=== PATIENT | female | born 1935 | race Caucasian/White ===

== ENCOUNTER 2020-06-18 10:34 | Outpatient (CLI) | payer MEDICARE, SELFPAY ==
--- NOTE | ~2020-06-18 | CT_ITS ---
EXAMINATION: CT abdomen pelvis w con DATE: 06/18/2020 11:36 INDICATION: Abdominal pain. TECHNIQUE: Computed tomography (CT) of the abdomen and pelvis was performed with 100 mL Omnipaque 350 intravenous contrast. Automated exposure control and iterative reconstruction technique were employe d. The dose-length product was 391.07 mGy-cm. COMPARISON: CT abdomen and pelvis 10/31/2016 FINDINGS: The visualized portions of the lung bases demonstrate mild atelectasis. There is a pneumato brandon in right lower lobe. No pleural effusion. The heart size is normal. No pericardial effusion. The re are cysts in the liver measuring up to 14 mm. There are changes of cholecystectomy. The spleen, pa ncreas, and adrenal glands are normal. There are cysts in the kidneys measuring up to 8 mm on the rig ht. There is an umbilical hernia containing fat. There are scattered diverticula in the colon. There is wall thickening of the sigmoid colon with surrounding fat stranding, consistent with diverticuliti s. There are no dilated loops of bowel. The appendix is not visualized. There are no pathologically e nlarged lymph nodes. There is no free intraperitoneal fluid. There is lumbar levocurvature and mild s pondylosis. IMPRESSION: 1. Sigmoid diverticulitis. No perforation or abscess. Reviewed, dictated and finalized at location A.
[2020-06-18 11:08] LABS: Basophils Absolute Auto 0.1 K/mm3 (0.0-0.1); Basophils Percent Auto 1.2 % (0.2-1.2); Eosinophils Absolute Auto 0.1 K/mm3 (0-0.3); Eosinophils Percent Auto 1.9 % (0-4.4); Hematocrit 39.4 % (37.0-47.0); Hemoglobin 12.7 g/dL (12.0-15.0); Immature Granulocyte Absolute 0.02 K/mm3 (0.00-0.031); Immature Granulocyte Percent A 0.3 % (0-0.5); Lymphocytes Absolute Auto 1.53 K/mm3 (0.9-3.2); Lymphocytes Percent Auto 26.3 % (18.3-44.2); Mean Corpuscular HGB Conc 32.2 g/dl (32-36); Mean Corpuscular Hemoglobin 29.4 pg (26-34); Mean Corpuscular Volume 91.2 fl (80-100); Mean Platelet Volume 9.4 fl (7.4-10.4); Monocytes Absolute Auto 0.4 K/mm3 (0.1-0.6); Monocytes Percent Auto 6.4 % (2.6-8.5); Neutrophils Absolute Auto 3.7 K/mm3 (1.3-6.7); Neutrophils Percent Auto 63.9 % (45.5-73.1); Platelet Count Result 307 k/mm3 (150-375); Red Blood Count 4.32 M/mm3 (4.2-5.4); Red Cell Distribution Width 12.7 % (11.5-14.5); White Blood Count 5.8 K/mm3 (4.5-10.0)
[2020-06-18 11:28] LABS: Alanine Aminotransferase 15 U/L (4-35); Albumin Level 4.4 g/dL (3.5-5.1); Alkaline Phosphatase 72 U/L (38-126); Anion Gap 14.5 mmol/L (7-16); Aspartate Amino Transferase 27 U/L (14-36); Bilirubin,Total 0.5 mg/dL (0.2-1.3); Blood Urea Nitrogen 11 mg/dL (7-17); Calcium 9.4 mg/dL (8.4-10.2); Carbon Dioxide 26 mmol/L (22-30); Chloride 100 mmol/L (98-107); Estimated Glomerular Filt Rate 60; Glucose 99 mg/dL (65-105); Potassium 4.5 mmol/L (3.4-5.0); Sodium 136 mmol/L (137-145)
[2020-06-18 11:30] LABS: Alanine Aminotransferase 15 U/L (4-35); Albumin Level 4.4 g/dL (3.5-5.1); Alkaline Phosphatase 72 U/L (38-126); Anion Gap 16.5 mmol/L (7-16); Aspartate Amino Transferase 27 U/L (14-36); Bilirubin,Total 0.6 mg/dL (0.2-1.3); Blood Urea Nitrogen 11 mg/dL (7-17); Calcium 9.3 mg/dL (8.4-10.2); Carbon Dioxide 26 mmol/L (22-30); Chloride 100 mmol/L (98-107); Cholesterol 211 mg/dL (0-200); Estimated Glomerular Filt Rate > 60; Glucose 100 mg/dL (65-105); HDL Direct 57 mg/dL; Potassium 4.5 mmol/L (3.4-5.0); Sodium 138 mmol/L (137-145); Triglycerides 138 mg/dL (<150)
[2020-06-18 11:31] LABS: Estimated Glomerular Filt Rate 60
[2020-06-18 11:41] LABS: LDL Cholesterol Direct 115 mg/dL
[2020-06-18 11:41] LABS: Add Urine Microscopic? YES; Appearance Urine Clear (Clear); Bilirubin Urine Negative (Negative); Blood Urine Negative (Negative); Color Urine Yellow (Yellow); Glucose Urine UA Negative (Negative); Ketones Urine Trace mg/dL (Negative); Leukocyte Esterase Ur Negative LEU/UL (Negative); Mucus Urine Rare /lpf; Nitrate Urine Negative (Negative); Protein Urine Negative (Negative); RBC Urine 0-2 /hpf (0-2); Squamous Epithelial Cell Urine Few /hpf (Few); Urobilinogen Urine Negative mg/dL (<2.0); WBC Urine 0-3 /hpf
[2020-06-18 12:14] LABS: Vitamin D 25 Hydroxy 15.5 ng/mL
== END 2020-06-18 10:35 | disposition home or self-care (01) ==
PROVIDERS: PCP Internal Medicine; Visit Provider Clinical Nurse Specialist
DX: R10.9 Unspecified abdominal pain (principal); I10 Essential (primary) hypertension; E55.9 Vitamin D deficiency, unspecified; K57.32 Diverticulitis of large intestine without perforation or abscess without bleeding
CPT/HCPCS: 36415; 74177; 80053; 80061; 81001; 82306; 85025; Q9967

== ENCOUNTER 2020-06-26 12:09 | Outpatient (CLI) | payer MEDICARE, SELFPAY ==
--- NOTE | ~2020-06-26 | CT_ITS ---
EXAMINATION: CT abdomen pelvis w con INDICATION: Abdominal pain, diverticulitis TECHNIQUE: Computed tomographic images of the abdomen and pelvis were obtained after the administrati on of 100 cc of Omnipaque 350 intravenous contrast. The dose-length product (DLP) was 505.84 mGy-cm. Automated exposure control and iterative reconstruction technique were employed. COMPARISON: 06/18/2020 FINDINGS: Minimal dependent atelectasis is present in the lung bases. The heart size is normal. There is a stable 4 mm nodule of the right middle lobe. Cysts of the liver measure up to 1.4 cm. The gallb ladder is surgically absent. The spleen, pancreas, and adrenal glands are normal. There is a stable h emorrhagic cyst of the left kidney upper pole. An 8 mm cyst is noted in the lower pole of the right k idney. There is calcified atherosclerosis of the aorta and many of the other arteries. No pathologica lly enlarged abdominal or pelvic lymph nodes are identified. There is been near complete resolution o f the previously described edematous stranding of the perisigmoid fat and wall thickening of the sigm oid colon. There is no free intraperitoneal gas or evidence of bowel obstruction. A moderate volume o f colonic stool is present. There is an umbilical hernia containing fat. There is mild lumbar spondyl osis. IMPRESSION: 1. Near complete interval resolution of the previously described sigmoid diverticulitis. No acute fin dings. Reviewed, dictated and finalized at location A. IMPRESSION: 1. Near complete interval resolution of the previously described sigmoid divert iculitis. No acute findings.
== END 2020-06-26 12:10 | disposition home or self-care (01) ==
LOC: ANHIMG 12:11
PROVIDERS: PCP Internal Medicine; Visit Provider Clinical Nurse Specialist
DX: K57.92 Diverticulitis of intestine, part unspecified, without perforation or abscess without bleeding (principal)
CPT/HCPCS: 74177; Q9967

== ENCOUNTER 2020-07-02 15:10 | Emergency (ER) | payer MEDICARE, SELFPAY ==
--- NOTE | ~2020-07-02 | CT_ITS ---
EXAMINATION: CT abdomen pelvis wo con EXAM DATE: 07/02/2020 18:17 INDICATION: Left flank pain. TECHNIQUE: Spiral CT of the abdomen and pelvis was performed without contrast. Axial, coronal and sag ittal images were reviewed. The dose-length product (DLP) for this examination was 492.07 mGy-cm. T he exposure was tailored according to patient size (auto mA exposure control), and iterative reconstr uction (ASIR) was used as additional dose reduction technique. Comparison is made to prior examinatio n from 06/26/2020. FINDINGS: There is 1.6 cm hyperdense left renal peripelvic lesion, measuring 70.1 Hounsfield units, w ith layering milk of calcium. Most likely hemorrhagic cyst with milk of calcium, was identical Hounsf ield units on the prior exam. There are no genitourinary calcifications or obstructive nephropathy. T he uterus is not identified and has likely been surgically resected. The bladder is undistended at t dianne of imaging. Bladder wall thickening which could be from the under distention, but cystitis not ex cludable. Several liver cyst measuring up to 1.4 cm. Bilateral adrenal gland hyperplasia. There are cholecystectomy clips. There is no retroperitoneal or pelvic lymphadenopathy. There is mild to mo derate scattered arteriosclerotic disease. Small umbilical fat-containing hernia. The appendix is not positively visualized. There is no pericecal inflammatory change to suggest appe ndicitis. There is mild to moderate colonic diverticulosis. There is no adjacent inflammatory change to suggest diverticulitis. The stomach and small bowel are unremarkable. There is colonic fluid, co rrelate for diarrhea. No free intraperitoneal gas. The heart is normal in size. There are no per icardial or pleural effusions. Right basilar granuloma unchanged. The bones are unremarkable. IMPRESSION: 1. No obstructive nephropathy. 2. Left renal peripelvic hemorrhagic cyst. 3. Bladder wall thickening, under distention versus cystitis. 4. Colonic fluid, correlate for diarrhea. 5. Colonic diverticulosis. 6. Small umbilical fat-containing hernia. Reviewed, dictated and finalized at location A.
--- NOTE | ~2020-07-02 | XR_ITS ---
EXAMINATION: XR abdomen/kub 1V EXAM DATE: 07/02/2020 18:27 INDICATION: Left lower abdominal pain. TECHNIQUE: Frontal projection(s) of the abdomen for interpretation. There is no prior study for charlie parker. FINDINGS: Colonic gas, no well-formed stool. Colonic fluid was seen on CT. No small bowel dilation, nonobstructive bowel gas pattern. There are no suspicious calcifications identified. There is no organomegaly suspected. Thoracolumbar bridging osteophytes. There are cholecystectomy clips. IMPRESSION: Colonic fluid. Reviewed, dictated and finalized at location A. IMPRESSION: Colonic fluid.
[2020-07-02 15:59] VITALS: BP 138/78; PULSE 84; RESP 16; TEMP 36.9; O2SAT 98
[2020-07-02 16:11] LABS: Basophils Absolute Auto 0.1 K/mm3 (0.0-0.1); Basophils Percent Auto 1.1 % (0.2-1.2); Eosinophils Absolute Auto 0.1 K/mm3 (0-0.3); Hemoglobin 14.7 g/dL (12.0-15.0); Immature Granulocyte Absolute 0.02 K/mm3 (0.00-0.031); Immature Granulocyte Percent A 0.3 % (0-0.5); Lymphocytes Absolute Auto 1.85 K/mm3 (0.9-3.2); Mean Corpuscular HGB Conc 32.7 g/dl (32-36); Mean Corpuscular Hemoglobin 29.1 pg (26-34); Mean Corpuscular Volume 88.9 fl (80-100); Mean Platelet Volume 9.2 fl (7.4-10.4); Monocytes Absolute Auto 0.4 K/mm3 (0.1-0.6); Monocytes Percent Auto 5.6 % (2.6-8.5); Neutrophils Absolute Auto 4.6 K/mm3 (1.3-6.7); Platelet Count Result 342 k/mm3 (150-375); Red Blood Count 5.06 M/mm3 (4.2-5.4); Red Cell Distribution Width 13.2 % (11.5-14.5); White Blood Count 7.1 K/mm3 (4.5-10.0)
[2020-07-02 16:22] LABS: Alanine Aminotransferase 17 U/L (4-35); Albumin Level 4.7 g/dL (3.5-5.1); Alkaline Phosphatase 58 U/L (38-126); Anion Gap 11 mmol/L (8-16); Aspartate Amino Transferase 30 U/L (14-36); Bilirubin,Total 0.4 mg/dL (0.2-1.3); Blood Urea Nitrogen 7 mg/dL (7-17); Calcium 9.6 mg/dL (8.4-10.2); Carbon Dioxide 24 mmol/L (22-30); Chloride 99 mmol/L (98-107); Estimated CRCL calculation 38 ml/min; Estimated Glomerular Filt Rate 60; Glucose 120 mg/dL (65-105); Lipase 203 U/L (23-300); Potassium 4.4 mmol/L (3.4-5.0); Sodium 134 mmol/L (137-145)
[2020-07-02 17:03] VITALS: BP 158/67; PULSE 72; RESP 16; O2SAT 99
[2020-07-02 17:42] VITALS: BP 148/83; PULSE 70; RESP 20; O2SAT 96
--- NOTE | 2020-07-02 17:45 | ED.ABDPAIN ---
HPI - Abdominal Pain General Chief Complaint: Abdominal Pain Stated Complaint: abd pain/h/o diverticulitis Time Seen by Provider: 07/02/20 17:05 Source: patient Mode of arrival: ambulatory Limitations: no limitations History of Present Illness HPI narrative: This patient is an 84 year old female who presents with complaint of left side abdominal pain. She developed left lower abdominal pain 2 weeks ago. She was diagnosed with diverticulitis by an outpatient CT scan. She continued to have pain so her PCP ordered another CT scan on 06/26/20. IT showed that her diverticulitis was resolving but she may be constipated. Patient reports over the past couple of days she is having worsening pain. She described sharp pain located left lower abdomen and it radiates to her back and to her vagina. Her son states this pain is different than when she was first diagnosed with diverticulitis. She has been taking milk of magnesia for constipation. She is passing watery stools but she denies any solid BM. She has nausea but no vomiting. She also denies fever or chills. MD elicited complaint: abdominal pain Related Data Allergies Allergy/AdvReac Type Severity Reaction Status Date / Time morphine Allergy Unknown Other Verified 07/02/20 17:05 Review of Systems Review of Systems: All systems reviewed & are unremarkable except as noted in HPI and below Constitutional: Constitutional: Denies chills and Denies fever(s) Cardiovascular: Cardiovascular: Denies chest pain Respiratory: Respiratory: Denies cough and Denies dyspnea Gastrointestinal: Gastrointestinal: Reports abdominal pain, Reports bloating, Reports constipation, Reports diarrhea and Denies vomiting Genitourinary: Genitourinary: Denies hematuria, Denies nocturia, Reports dysuria and Reports flank pain PMFSH Past Medical History Medical History (Updated 07/02/20 @ 20:24 by Shruthi Delacruz MD) Cervical os stenosis Chronic pain Diverticulitis DVT prophylaxis Essential (primary) hypertension Gastroesophageal reflux Herpes zoster without complication Hypocholesteremia Osteoarthritis Surgical History Surgical History (Updated 10/13/19 @ 07:50 by Maria De Jesus Farrell CMA) H/O spinal fusion History of back surgery Family History Family History (Updated 06/15/18 @ 09:40 by DOCTOR UNKNOWN) Mother Family history of malignant neoplasm of breast Hypertension Family history of cardiovascular disease Father Family history of lung cancer Social History Social History Smoking status: Former smoker Smoking end date: 11/22/90 Alcohol intake: never Gender identity (if verbalized by the patient): Female Exam Const: General: no acute distress and alert Orientation/consciousness: patient oriented x3 HENMT: Head: normocephalic and atraumatic Face and sinus: face symmetric Mouth: Yes tongue normal and Yes Normal salivary glands and ducts present Throat: posterior oropharynx normal Eyes: EOM: EOMs intact bilaterally Neck: Neck: normal visual inspection and no lymphadenopathy Chest: Chest palpation & inspection: normal inspection of the chest Resp: Effort & Inspection: normal respiratory effort and no retractions Auscultation: clear to auscultation bilaterally Cardio: Rate: regular rate Rhythm: regular rhythm Heart sounds: no murmurs GI: GI Palp: Yes Soft to palpation, Yes Tenderness to palpation present (GI) (mild LLQ), No Guarding due to palpation present (GI), No Rigid due to palpation, No Hernia present and No Palpable mass present Auscultation: normal bowel sounds : General: Yes no CVA tenderness Skin: General skin exam: normal color Rashes: no rashes Neuro: General: patient oriented x3 and moves all extremities Extrem: General: no pedal edema Course Consultations Consultation #1: I Discussed with Dr. Patterson patient case, exam and CT. He states he can see patient tomorrow morning. She has a benign exam and no diverticulitis . He a
[2020-07-02 18:05] LABS: Lactic Acid Reflex 0.8 mmol/L (0.7-2.1)
[2020-07-02 18:26] LABS: Add Urine Microscopic? NO; Appearance Urine Clear (Clear); Bilirubin Urine Negative (Negative); Blood Urine Negative (Negative); Color Urine Yellow (Yellow); Glucose Urine UA Negative (Negative); Ketones Urine Negative (Negative); Leukocyte Esterase Ur Negative LEU/UL (Negative); Nitrate Urine Negative (Negative); Protein Urine Negative (Negative); Specific Grav Ur 1.011 (1.001-1.035); Urobilinogen Urine Negative mg/dL (<2.0)
[2020-07-02] MEDS: ONDANSETRON INJ 4 MG/2 ML VIAL IV PUSH (18:27)
[2020-07-02 19:49] VITALS: BP 143/65; PULSE 58; RESP 14; O2SAT 98
[2020-07-02 20:54] VITALS: BP 139/75; PULSE 61; RESP 16; TEMP 37.2; O2SAT 100
== END 2020-07-02 20:56 | disposition home or self-care (01) ==
PROVIDERS: Emergency Provider General Practice; PCP Internal Medicine
DX: R10.32 Left lower quadrant pain (principal); R19.7 Diarrhea, unspecified; I10 Essential (primary) hypertension; K21.9 Gastro-esophageal reflux disease without esophagitis; E78.00 Pure hypercholesterolemia, unspecified; M19.90 Unspecified osteoarthritis, unspecified site; Z87.891 Personal history of nicotine dependence; N28.1 Cyst of kidney, acquired; R93.41 Abnormal radiologic findings on diagnostic imaging of renal pelvis, ureter, or bladder; K57.90 Diverticulosis of intestine, part unspecified, without perforation or abscess without bleeding; K42.9 Umbilical hernia without obstruction or gangrene
CPT/HCPCS: 36415; 51701; 74018; 74176; 80053; 81003; 83605; 83690; 85025; 96374; 96375; 99284; J0131; J2405

== ENCOUNTER 2020-08-31 02:19 | Outpatient (CLI) | payer MEDICARE, SELFPAY ==
[2020-08-31 18:59] LABS: SARS-CoV-2 RNA PCR Negative
== END 2020-08-31 02:20 | disposition home or self-care (01) ==
LOC: ANHCOVIDDT 02:20
PROVIDERS: PCP Internal Medicine; Visit Provider Internal Medicine Gastroenterology
DX: Z01.812 Encounter for preprocedural laboratory examination (principal); Z20.828 Contact with and (suspected) exposure to other viral communicable diseases
CPT/HCPCS: 87635; C9803; U0003

== ENCOUNTER 2020-09-03 01:08 | Day surgery (SDC) | payer MEDICARE, SELFPAY ==
[2020-08-29 14:21] VITALS: BMI 26.5
--- NOTE | 2020-09-03 13:45 | WPDANESEPPF ---
Anes - Initial Pre Proc Eval Procedure: Operation Date: 09/03/20 14:45 Proposed Procedures p Screening Colonoscopy - Monster Hansen MD Date/Time: 09/03/20 13:45 Surgeon: Monster Hansen MD Pre Op Diagnosis: Neoplasm Screening Patient Data Age: 84 Gender: F Height: 5 ft 3 in Weight: 68 kg Allergies Allergy/AdvReac Type Severity Reaction Status Date / Time morphine AdvReac Severe Vomiting Verified 09/02/20 14:39 Home Medications Medication Instructions Recorded Confirmed Type pravastatin 40 mg tablet 40 mg PO DAILY #90 tablet 10/18/19 09/03/20 Rx amlodipine 5 mg tablet 5 mg PO DAILY #90 tablet 05/27/20 09/03/20 Rx ondansetron HCl 4 mg tablet 4 mg PO Q8H PRN #20 tablet 06/21/20 09/03/20 Rx enalapril maleate 20 mg tablet 20 mg PO BID #180 tablet 07/15/20 09/03/20 Rx sertraline 25 mg tablet 25 mg PO DAILY #90 tablet 07/25/20 09/03/20 Rx peg 3350-electrolytes 236 240 ml PO Q10M #4000 ml 08/14/20 08/29/20 Rx gram-22.74 gram-6.74 gram-5.86 gram solution dicyclomine 10 mg capsule 10 mg PO TID PRN #90 cap 08/29/20 09/03/20 Rx doxylamine succinate [Unisom 25 mg PO HS PRN 08/29/20 09/03/20 History (doxylamine)] polyethylene glycol 3350 [Miralax] 17 g PO DAILY PRN 08/29/20 08/29/20 History psyllium husk [Metamucil] 1 tbsp PO DAILY 08/29/20 09/03/20 History sodium,potassium,mag sulfates 17.5 See Rx Instructions PO .COMPLEX 08/29/20 08/29/20 Rx gram-3.13 gram-1.6 gram oral soln #354 ml Patient hx anesthesia problems: none Family hx anesthesia problems: none PMFSH Past Medical History Medical History Cervical os stenosis Chronic pain Diverticulitis DVT prophylaxis Essential (primary) hypertension Gastroesophageal reflux Herpes zoster without complication Hypocholesteremia Osteoarthritis Surgical History Surgical History H/O spinal fusion History of back surgery Family History Family History Mother Family history of malignant neoplasm of breast Hypertension Family history of cardiovascular disease Father Family history of lung cancer Social History Social History Smoking packs per day: 1 Smoking cigarettes per day: 20.0 Years smoked: 30 Smoking pack-years: 30.00 Smoking status: Former smoker Tobacco type: cigarettes Smoking end date: 11/22/90 Alcohol intake: never Substance use: never Substance use type: does not use Living arrangements: alone Gender identity (if verbalized by the patient): Female Spiritual care concerns: No Anes - Eval Final PreProcedure Day of Procedure 09/03/20 13:45 Patient weight: normal Heart: regular rate and rhythm Lungs: clear to auscultation Airway: Mallampati scale class II Neurological: alert and oriented Last oral intake: >/= 8 hours ASA classification: III Emergent: no Anesthetic plan: proceed Anesthesia type and monitoring: general GIVS and standard monitoring Informed Consent: The patient's anesthetic plan and its attendant risks and benefits were discussed with the patient/family/POA. Questions were solicited and answers provided to the satisfaction of the patient/family/POA.
[2020-09-03] MEDS: LACTATED RINGERS 1,000 ML 150 ML IV CONT (13:51)
[2020-09-03 13:54] VITALS: BP 172/65; PULSE 76; RESP 20; TEMP 36.6; O2SAT 98; BMI 25.8
--- NOTE | 2020-09-03 14:20 | WPDHPUPDATE1 ---
History and Physical Update Update Date/Time: 09/03/20 14:20 History and Physical has been reviewed, including an updated exam of the patient. There are NO changes in the patient's condition. Risks, benefits, and alternatives have been discussed and questions answered. Patient agrees to proceed with procedure.
[2020-09-03 14:43] VITALS: BP 114/52; PULSE 66; RESP 19; O2SAT 95
[2020-09-03 14:53] VITALS: BP 123/63; PULSE 63; RESP 18; O2SAT 98
[2020-09-03 15:03] VITALS: BP 117/58; PULSE 61; RESP 19; O2SAT 99
== END 2020-09-03 15:13 | disposition home or self-care (01) ==
PROVIDERS: PCP Internal Medicine; Visit Provider Internal Medicine Gastroenterology
PROC: 0DJD8ZZ Inspection of Lower Intestinal Tract, Via Natural or Artificial Opening Endoscopic (ICD-10-PCS; CPT 45378; principal; 2020-09-03 14:45)
DX: Z09 Encounter for follow-up examination after completed treatment for conditions other than malignant neoplasm (principal); R10.30 Lower abdominal pain, unspecified; K63.5 Polyp of colon; K57.30 Diverticulosis of large intestine without perforation or abscess without bleeding; K64.8 Other hemorrhoids; Z87.19 Personal history of other diseases of the digestive system; I10 Essential (primary) hypertension; K21.9 Gastro-esophageal reflux disease without esophagitis; E78.00 Pure hypercholesterolemia, unspecified; M19.90 Unspecified osteoarthritis, unspecified site; Z98.1 Arthrodesis status; Z87.891 Personal history of nicotine dependence
CPT/HCPCS: 45380; 88305; J2704; J7120

== ENCOUNTER 2021-02-15 09:26 | Emergency (ER) | payer MEDICARE, SELFPAY ==
[2021-02-15 09:43] VITALS: BP 162/78; PULSE 72; RESP 20; TEMP 36.8; O2SAT 99
--- NOTE | 2021-02-15 09:53 | ED.EAR ---
HPI - Ear Problem General Chief complaint: Ear Stated complaint: EARACHE Time Seen by Provider: 02/15/21 09:53 Source: patient Mode of arrival: ambulatory Limitations: no limitations History of Present Illness HPI Narrative: Adriana Ponce is an 85 yo female with a PMH of heart blood pressure, osteoporosis, depression, cataracts, diverticulosis , [facility] that started about a week ago that is gotten worse and now her left ear is starting to bother her. She states that the pain can keep her up at night especially the last 2 nights rates the pain gets high as high as 7 out of 10 she has taken at the house milligrams of Tylenol and that at least improves the pain. She has a history of of otitis media that starts with sinus drainage Related Data Allergies Allergy/AdvReac Type Severity Reaction Status Date / Time morphine AdvReac Severe Vomiting Verified 02/15/21 09:32 Review of Systems Review of Systems: Narrative: CONSTITUTIONAL: Denies fever, chills, sweats. EYES: Denies visual changes, redness, discharge. ENT: Denies rhinorrhea, has congestion, sore throat, has bilateral R>L otalgia. CARDIOVASCULAR: Denies chest pain, palpitations, edema. RESPIRATORY: Denies dyspnea, wheezing, cough GASTROINTESTINAL: Denies abdominal pain, nausea, vomiting, diarrhea. GENITOURINARY: Denies dysuria, hematuria, abnormal discharge SKIN: Denies rash or itching. NEUROLOGIC: Denies numbness, or focal weakness. PSYCHIATRIC: Denies anxiety or depression. PMFSH Past Medical History Medical History Cervical os stenosis Chronic pain Diverticulitis DVT prophylaxis Essential (primary) hypertension Gastroesophageal reflux Herpes zoster without complication Hypocholesteremia Osteoarthritis Surgical History Surgical History H/O spinal fusion History of back surgery Family History Family History Mother Family history of malignant neoplasm of breast Hypertension Family history of cardiovascular disease Father Family history of lung cancer Social History Social History Smoking packs per day: 1 Smoking cigarettes per day: 20.0 Years smoked: 30 Smoking pack-years: 30.00 Smoking status: Former smoker Tobacco type: cigarettes Smoking end date: 11/22/90 Alcohol intake: never Substance use: never Substance use type: does not use Gender identity (if verbalized by the patient): Female Spiritual care concerns: No Comments At time of signature, I agree with nursing past medical, surgical, social and family history. There is no relevant family history pertinent to the presenting complaint. BP elevated , just took med prior to arrival. Exam Narrative: Exam Narrative: GENERAL: This is a well-nourished, well-developed patient, in moderate distress. HEAD: normocephalic, atraumatic. EYES: Sclera clear/white. Vision is grossly intact. EARS: External ears normal, auditory canals erythema and without drainage, TMs arleen on left , and right bulging l without perforation. Hearing grossly intact. NOSE: External nose normal without nasal discharge, nares without redness, no rhinorrhea. THROAT: Mucous membranes moist, posterior pharynx mild erythema, has tender submandibular lymph node on right NECK: Neck supple, non-tender CARDIOVASCULAR: Regular rate and rhythm without murmurs, gallops, or rubs. RESPIRATORY: Clear to auscultation. Breath sounds equal bilaterally. No wheezes, rales, or rhonchi. GASTROINTESTINAL: Abdomen soft, SKIN: warm, intact with no suspicious lesions or rash, good texture and turgor. NEURO: awake, alert, and oriented to person, place and time. There were no obvious focal neurologic abnormalities. Steady gait EXTREMITIES: Normal range of motion. BACK: Nontender
== END 2021-02-15 10:30 | disposition home or self-care (01) ==
PROVIDERS: Emergency Provider Nurse Practitioner; PCP Internal Medicine
DX: H66.006 Acute suppurative otitis media without spontaneous rupture of ear drum, recurrent, bilateral (principal); Z87.891 Personal history of nicotine dependence; M19.90 Unspecified osteoarthritis, unspecified site; E78.00 Pure hypercholesterolemia, unspecified; K21.9 Gastro-esophageal reflux disease without esophagitis; I10 Essential (primary) hypertension; M48.02 Spinal stenosis, cervical region; F32.9 Major depressive disorder, single episode, unspecified
CPT/HCPCS: 99213; G0463

== ENCOUNTER 2021-08-06 10:26 | Emergency (ER) | payer MEDICARE, SELFPAY ==
--- NOTE | ~2021-08-06 | XR_ITS ---
EXAMINATION: XR abdomen/kub 1V INDICATION: Abdominal pain TECHNIQUE: Supine views of the abdomen were obtained on 2 radiographs. COMPARISON: 07/02/2020 FINDINGS: The bowel gas pattern is normal. No dilated loops of bowel are evident. Cholecystectomy cli ps are noted. There is severe lumbar spondylosis. Moderate osteoarthritis is noted in the hips. IMPRESSION: 1. Nonspecific bowel gas pattern. Reviewed, dictated and finalized at location A.
[2021-08-06 10:33] VITALS: BP 145/75; PULSE 87; RESP 16; TEMP 36.7; O2SAT 99
--- NOTE | 2021-08-06 11:02 | ED.ABDPAIN ---
HPI - Abdominal Pain General Chief Complaint: Abdominal Pain Stated Complaint: STOMACH PAIN/PAINFUL URINATION/BACK PAIN Time Seen by Provider: 08/06/21 10:45 Source: patient, family and RN notes reviewed Mode of arrival: ambulatory Limitations: no limitations History of Present Illness HPI narrative: 85-year-old female who presents to [facility] accompanied by son with complaints of lower abdominal pain, back pain and some painful urination. Patient states that her discomfort has been worse for the past 5 days, feels bloated, no constipation or diarrhea but has some nausea and has Zofran at home and dicyclomine for abdominal cramping and bloating which she took today. Patient states that she had problems with diverticulosis in the past and had scope which stated was cleared. She reports that she has a lot of vaginal type of pressure and has leakage of urine and has to wear a pad. Patient states she has had a hysterectomy when she was 43 and never has seen seismic survey assistant for exams after that. MD elicited complaint: abdominal pain and other (back pain and painful urination) Pertinent past history: diverticulitis and past UTI Related Data Home Medications Medication Instructions Recorded Confirmed dicyclomine mg 08/06/21 Allergies Allergy/AdvReac Type Severity Reaction Status Date / Time morphine AdvReac Severe Vomiting Verified 04/28/21 13:29 Review of Systems Review of Systems: CONSTITUTIONAL: Denies fever, chills, or sweats. EYES: Denies visual changes, redness, or discharge. ENT: Denies rhinorrhea, congestion, sore throat, or otalgia. CARDIOVASCULAR: Denies chest pain, palpitations, or edema. RESPIRATORY: Denies cough or dyspnea. GASTROINTESTINAL: Positive for lower abdominal pain, nausea, no vomiting, or diarrhea. GENITOURINARY: Positive for dysuria or hematuria. SKIN: Denies rash or itching. MUSCULOSKELETAL: positive for back pain, joint pain, arthritis history NEUROLOGIC: Denies headache, numbness, or weakness. PSYCHIATRIC: Positive for history of anxiety or depression. All systems reviewed & are unremarkable except as noted in HPI and below PMFSH Past Medical History Medical History (Updated 08/06/21 @ 12:05 by Shira Monroe NP) Cervical os stenosis Chronic pain Diverticulitis DVT prophylaxis Essential (primary) hypertension Gastroesophageal reflux Herpes zoster without complication Hypocholesteremia Irritable bowel syndrome (IBS) Osteoarthritis Surgical History Surgical History (Updated 08/06/21 @ 11:06 by Shira Monroe NP) H/O spinal fusion History of appendectomy History of back surgery History of cholecystectomy History of hysterectomy Family History Family History Mother Family history of malignant neoplasm of breast Hypertension Family history of cardiovascular disease Father Family history of lung cancer Alcoholism Hypertension Sibling Alcoholism Hypertension Sibling Cancer Social History Social History Smoking packs per day: 1 Smoking cigarettes per day: 20.0 Years smoked: 30 Smoking pack-years: 30.00 Smoking status: Former smoker Tobacco type: cigarettes Smoking end date: 11/22/90 Alcohol intake: never Substance use: never Substance use type: does not use Gender identity (if verbalized by the patient): Female Spiritual care concerns: No Comments At time of signature, agree with nursing past medical, surgical, social and family history. There is no relevant family history pertinent to the presenting complaint Exam Narrative: GENERAL: Well-appearing, well-nourished, and in no acute distress. HEAD: Normocephalic, atraumatic. EYES: PERRLA and EOMI. ENT: Nares clear, no rhinorrhea or epistaxis. Mucous membranes moist.TM's normal throat normal with no lesions exudates or tonsil swelling. NECK: Supple.no lymphadenopathy CHEST: Clear to
== END 2021-08-06 11:45 | disposition home or self-care (01) ==
PROVIDERS: Emergency Provider Registered Nurse; PCP Internal Medicine
DX: N39.0 Urinary tract infection, site not specified (principal); R10.30 Lower abdominal pain, unspecified; I10 Essential (primary) hypertension; Z87.891 Personal history of nicotine dependence
CPT/HCPCS: 74018; 81003; 87086; 99213; G0463

== ENCOUNTER 2022-01-21 15:59 | Outpatient (CLI) | payer MEDICARE, SELFPAY ==
--- NOTE | ~2022-01-21 | XR_ITS ---
XR lumbar spine 2-3V 01/21/2022 16:20 Indication: Back pain Procedure: 3 views lumbar spine Comparison: No prior studies for comparison. Findings: There is disc narrowing at all lumbar levels. There is moderate multilevel facet hypertroph y. There are prominent marginal osteophytes at L1-2 and L2-3. No acute fracture, subluxation or dislo cation. There is atherosclerosis of the aorta. There are cholecystectomy clips. Impression: 1: Moderate-severe lumbar spondylosis. Reviewed, dictated and finalized at location A. R DRIVEN BRUSH [employer]KER Impression: 1: Moderate-severe lumbar spondylosis.
== END 2022-01-21 16:00 | disposition home or self-care (01) ==
PROVIDERS: PCP Internal Medicine; Visit Provider Nurse Practitioner
DX: M54.16 Radiculopathy, lumbar region (principal); M47.816 Spondylosis without myelopathy or radiculopathy, lumbar region
CPT/HCPCS: 72100

== ENCOUNTER 2022-01-28 15:18 | Outpatient (CLI) | payer MEDICARE, SELFPAY ==
--- NOTE | ~2022-01-28 | MR_ITS ---
EXAMINATION: MR lumbar spine wo con DATE: 01/28/2022 16:53 INDICATION: Lumbar radiculopathy TECHNIQUE: Magnetic resonance imaging (MRI) of the lumbar spine was performed without intravenous con trast. Sequences included sagittal T2-weighted FSE, sagittal T2-weighted FS FSE, sagittal T1-weighted FSE, and axial T2-weighted FSE. COMPARISON: Lumbar spine radiographs dated 01/21/2022 FINDINGS: Alignment is normal. Minimal likely physiologic anterior wedging at L1. Remaining lumbar vertebral ravi dy heights are normal. T1 hyperintense hemangiomas at L1 and S1. Marrow signal is otherwise normal. M ild disc height loss at L1-L2, L2-L3 and L4-L5. Annular fissure at L4-L5. The conus medullaris termin ates at L1. There is normal signal in the caudal spinal cord. Paravertebral soft tissues are unremark able. The following disc levels are specifically discussed: T12-L1: The disc does not extend beyond the endplate margin. There is mild bilateral facet joint oste oarthritis. There is no neural foraminal stenosis. There is no central canal stenosis. L1-L2: Disc is mildly bulging. There is hypertrophy of the ligamentum flavum. There is moderate bila teral facet joint osteoarthritis. There is no neural foraminal stenosis. There is mild central canal stenosis. L2-L3: Disc is mildly bulging. There is hypertrophy of the ligamentum flavum. There is severe bilate ral facet joint osteoarthritis. There is mild bilateral neural foraminal stenosis. There is mild cent ral canal stenosis. L3-L4: Disc is mildly bulging. There is hypertrophy of the ligamentum flavum. There is severe bilate ral facet joint osteoarthritis. There is mild bilateral neural foraminal stenosis. There is mild cent ral canal stenosis. L4-L5: Moderate diffuse disc bulge with annular fissure. There is hypertrophy of the ligamentum flavu m. There is severe bilateral facet joint osteoarthritis. There is mild to moderate bilateral neural foraminal stenosis. There is mild central canal stenosis. Moderate stenosis of the left and right lat eral recesses. L5-S1: Small central disc protrusion. There is severe left and moderate right facet joint osteoarthri tis. There is mild left neural foraminal stenosis. There is no central canal stenosis. IMPRESSION: 1. Lumbar spondylosis with multilevel mild disc height loss and moderate to severe facet osteoarthrit is. Reviewed, dictated and finalized at location A. LOADING MACHINE OPERATOR IMPRESSION: 1. Lumbar spondylosis with multilevel mild disc height loss and moderate to sev ere facet osteoarthritis.
== END 2022-01-28 15:19 | disposition home or self-care (01) ==
PROVIDERS: PCP Internal Medicine; Visit Provider Nurse Practitioner
DX: M54.16 Radiculopathy, lumbar region (principal); M43.06 Spondylolysis, lumbar region; M85.88 Other specified disorders of bone density and structure, other site
CPT/HCPCS: 72148

== ENCOUNTER → 2022-07-09 10:33 | Outpatient (CLI) | payer MEDICARE, BC, SELFPAY ==
--- NOTE | ~2022-07-09 | XR_ITS ---
EXAMINATION: XR hip BI 2V w AP pelvis DATE: 07/09/2022 10:57 INDICATION: Bilateral hip pain TECHNIQUE: AP view the pelvis and two views of each hip were obtained. COMPARISON: None. FINDINGS: Bone alignment is normal. There is no fracture. There is moderate osteoarthritis of the hip s. Phleboliths are noted in the pelvis. There is a midline surgical clip of the pelvis. IMPRESSION: 1. Moderate osteoarthritis of the hips. Reviewed, dictated and finalized at location A.
== END ==
PROVIDERS: PCP Internal Medicine; Visit Provider Nurse Practitioner Family
DX: M25.552 Pain in left hip (principal); M25.551 Pain in right hip; M16.0 Bilateral primary osteoarthritis of hip
CPT/HCPCS: 73521

== ENCOUNTER → 2022-07-30 10:22 | Outpatient (CLI) | payer MEDICARE, SELFPAY ==
--- NOTE | ~2022-07-30 | XR_ITS ---
XR shoulder LT min 2V DATE: 07/30/2022 10:57 INDICATION: Left shoulder pain TECHNIQUE: 5 views COMPARISON: None FINDINGS: There is osteopenia. Postoperative change from anterior and posterior cervical spinal fusion is partially included in this examination. Degenerative spurring/DISH of the thoracic spine. No fracture or dislocation, periosteal reaction or bone destruction. 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 IMPRESSION: Osteopenia Postoperative change of cervical spine Diffuse idiopathic skeletal hyperostosis of the thoracic spine. 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
== END ==
PROVIDERS: PCP Internal Medicine; Visit Provider Nurse Practitioner Family
DX: M19.012 Primary osteoarthritis, left shoulder (principal); M48.14 Ankylosing hyperostosis [Forestier], thoracic region
CPT/HCPCS: 73030

== ENCOUNTER 2022-11-14 22:26 | Emergency (ER) | payer MEDICARE, SELFPAY ==
--- NOTE | ~2022-11-14 | XR_ITS ---
EXAMINATION: XR chest 1V DATE: 11/15/2022 00:37 INDICATION: Left sided rib pain. TECHNIQUE: frontal view of the chest was obtained. COMPARISON: Chest radiograph dated 10/03/2018 FINDINGS: Right lung volume is decreased with new mild elevation of right hemidiaphragm. The lungs remain clear with no focal airspace opacities, pulmonary edema, pleural effusion or pneumothorax. The cardiomedia stinal silhouette is normal. Cholecystectomy clips in right upper quadrant. Plate-screw fixation for likely C5-C6 anterior spinal fusion with additional plate and screw fixations along the lamina at bot h levels. IMPRESSION: 1. Mild elevation the right hemidiaphragm. No other acute cardiopulmonary disease. Reviewed, dictated and finalized at location A. ANALYST IMPRESSION: 1. Mild elevation the right hemidiaphragm. No other acute cardiopulmonary disea se.
--- NOTE | ~2022-11-14 | XR_ITS ---
EXAMINATION: XR shoulder LT min 2V DATE: 11/15/2022 00:37 INDICATION: Left scapular pain post fall TECHNIQUE: AP internally and externally rotated, AP oblique externally rotated and transscapular Y vi ews of the left shoulder were obtained. COMPARISON: None FINDINGS: Normal alignment. No fracture.Mild glenohumeral osteoarthritis. Moderate left acromioclavicular oste oarthritis. No interval change in multiple calcifications a few with ring and arc-like configuration in the proximal left humeral diaphysis and would favor enchondroma over bone infarct. C5-C6 anterior spinal fusion with plate and screw fixation. There are also plate and screw fixations across the lami na of C4-C6. Soft tissues are unremarkable. IMPRESSION: Mild left glenohumeral and moderate acromioclavicular osteoarthritis. No acute osseous abnormality. Reviewed, dictated and finalized at location A. ICAL PUNCH OPERATOR
--- NOTE | ~2022-11-14 | CT_ITS ---
EXAMINATION: CT brain wo con DATE: 11/15/2022 00:19 INDICATION: fall, pain in face and neck . TECHNIQUE: Computed tomography (CT) of the head was performed without intravenous contrast. The mA wa s adjusted according to patient size. Iterative reconstruction technique was employed. The dose-lengt h product was 605.33 mGy-cm. COMPARISON: 04/24/2017. FINDINGS: No acute intracranial hemorrhage or extra-axial fluid collection. No hydrocephalus, mass, or herniation. No acute ischemic infarct. Unremarkable dural venous sinus attenuation. No acute osseous abnormality. Hyperostosis. The aerated spaces are clear. Mild atrophy and chronic white matter change. Old right thalamic lacunar infarct. Atherosclerotic int racranial calcification. Bilateral lens replacements. IMPRESSION: No acute intracranial process. Reviewed, dictated and finalized at location K. NG TANK OPERATOR
--- NOTE | ~2022-11-14 | CT_ITS ---
EXAMINATION: CT facial & cervical spine wo DATE: 11/15/2022 00:19 INDICATION: neck and face pain post fall TECHNIQUE: Computed tomography (CT) of the maxillofacial region and cervical spine was performed with out intravenous contrast. Automated exposure control and iterative reconstruction technique were empl oyed. The dose-length product was 363.95 mGy-cm. COMPARISON: MR cervical spine 04/25/2017. FINDINGS: CERVICAL: Vertebral Body Alignment: Intact. Craniocervical and atlantoaxial alignment: Moderate degenerative change. Alignment intact. Osseous structures/fracture: No evidence of a lytic or blastic process in the visualized spine. No e vidence of acute fracture. Uncomplicated ACDF at C5-6. Left laminectomy hardware at C4-C6. Cervical soft tissues: The paraspinal soft tissues planes are maintained. Degenerative changes: Degenerative changes, without severe central canal narrowing. Multilevel severe left neural foraminal narrowing. FACE: Soft Tissues: No significant superficial soft tissue swelling. Facial bones: No acute fracture. No lytic or blastic process. Eyes: The globes are intact. The soft tissue planes of the orbits are maintained. Bilateral lens re placements. Paranasal Sinuses: Trace left mastoid fluid, the remaining visualized aerated spaces are clear. Foreign Bodies: No radiopaque foreign bodies. Other Findings: Periodontal disease. IMPRESSION: No acute fracture or traumatic malalignment in the cervical spine. No acute facial bone fracture. Reviewed, dictated and finalized at location K. STOS HAZARD ABATEMENT WORKER IMPRESSION: No acute fracture or traumatic malalignment in the cervical spine. No acute fac ial bone fracture.
[2022-11-14 22:27] VITALS: BP 178/86; PULSE 94; RESP 16; TEMP 36.8; O2SAT 97
--- NOTE | 2022-11-14 23:33 | ED.FALL ---
HPI - Fall General Chief Complaint: Fall Stated Complaint: NECK PAIN S/P FALL Time Seen by Provider: 11/14/22 22:28 History of Present Illness HPI Narrative: 87-year-old female presented to the emergency department for evaluation for injuries at pain after having a ground-level fall. Patient states she fell backwards and struck her head. Patient does have some injuries to her fingers with minor lacerations/skin tears. Patient is also complaining of left posterior scapular pain. Related Data Allergies Allergy/AdvReac Type Severity Reaction Status Date / Time morphine AdvReac Severe Vomiting Verified 11/14/22 23:48 Review of Systems Review of Systems: CONSTITUTIONAL: Denies fever, chills, or sweats. EYES: Denies visual changes, redness, or discharge. ENT: Denies rhinorrhea, congestion, sore throat, or otalgia. CARDIOVASCULAR: Denies chest pain, palpitations, or edema. RESPIRATORY: Denies cough or dyspnea. GASTROINTESTINAL: Denies abdominal pain, nausea, vomiting, or diarrhea. GENITOURINARY: Denies dysuria or hematuria. SKIN: Denies rash or itching. MUSCULOSKELETAL: See HPI NEUROLOGIC: Denies headache, numbness, or weakness. [facility] Past Medical History Medical History (Updated 11/16/22 @ 00:00 by Background Daemon) Cervical os stenosis Chronic pain Diverticulitis DVT prophylaxis Essential (primary) hypertension Gastroesophageal reflux Herpes zoster without complication History of vaginal delivery x 5 1 stillborn Hypocholesteremia Irritable bowel syndrome (IBS) Osteoarthritis Overweight (BMI 25.0-29.9) Surgical History Surgical History (Updated 01/22/22 @ 09:01 by Krysta Gamboa NP) H/O spinal fusion Cervical spine History of appendectomy History of cholecystectomy History of hysterectomy Hx of neck surgery Family History Family History Mother Family history of malignant neoplasm of breast Hypertension Family history of cardiovascular disease Father Family history of lung cancer Alcoholism Hypertension Sibling Alcoholism Hypertension Sibling Cancer Social History Social History Smoking packs per day: 1 Smoking cigarettes per day: 20.0 Years smoked: 30 Smoking pack-years: 30.00 Smoking status: Never smoker Tobacco type: cigarettes Smoking end date: 11/22/90 Alcohol intake: never Substance use: never Substance use type: does not use Gender identity (if verbalized by the patient): Female Spiritual care concerns: No Exam Narrative: APPEARANCE: Well appearing, no pain, no distress, well-nourished. HEAD: normocephalic, atraumatic. EYES: PERRLA/EOMI, conjunctivae clear. NOSE: Normal no drainage THROAT: Pharynx clear, no exudate. NECK: Supple. No adenopathy, no masses. RESPIRATORY: Airway patent, respirations nonlabored. Clear to auscultation bilaterally, no rales, rhonchi, wheezing. CARDIOVASCULAR: Regular rate and rhythm without murmurs rubs or gallops. ABDOMINAL: Soft, nontender, nondistended, normal bowel sounds MUSCULOSKELETAL: Muscular tenderness on left scapula. NEURO: Alert. Cranial nerves II through XII intact. Good gait. Good coordination SKIN: Warm, dry. Normal Color Course Course Emergency Course: Patient was updated on the results of her x-rays and other imaging. Patient did feel improved with treatment. Patient was encouraged of close follow-up with her primary care physician. All question concerns were addressed. Vital Signs Vital signs: Vital Signs Temperature 98.2 F 11/14/22 22:27 Pulse Rate 94 11/14/22 22:27 Respiratory Rate 16 11/14/22 22:27 Blood Pressure 178/86 H 11/14/22 22:27 Pulse Oximetry 97 11/14/22 22:27 Temperature 98.2 F 11/14/22 22:27 Pulse Rate 81 11/15/22 02:20 Respiratory Rate 19 11/15/22 02:20 Blood Pressure 141/51 H 11/15/22 02:48 Pulse Oximetry 93 11/15/22 02:20
[2022-11-14] MEDS: fentaNYL CITRATE INJ (*CRX) 100 MCG/2 ML VIAL 50 MCG IV PUSH (23:48)
[2022-11-15] MEDS: CYCLOBENZAPRINE HCL 10 MG TABLET PO (00:33)
[2022-11-15 02:20] VITALS: PULSE 81; RESP 19; O2SAT 93
[2022-11-15] MEDS: HYDROcodone/acetaminophen (*CRX) 5-325 MG TABLET 1 TAB PO (02:38)
[2022-11-15 02:48] VITALS: BP 141/51
[2022-11-15] MEDS: HYDROmorphone HCL INJ (*CRX) 1 MG/ML SYR 0.5 MG IV PUSH (02:57)
== END 2022-11-15 05:28 | disposition home or self-care (01) ==
PROVIDERS: Emergency Provider Emergency Medicine; PCP Internal Medicine
DX: S09.90XA Unspecified injury of head, initial encounter (principal); M25.512 Pain in left shoulder; W18.30XA Fall on same level, unspecified, initial encounter; I10 Essential (primary) hypertension; K21.9 Gastro-esophageal reflux disease without esophagitis; Z87.891 Personal history of nicotine dependence
CPT/HCPCS: 70450; 70486; 71045; 72125; 73030; 96374; 96375; 99284; A9270; J1170; J3010

== ENCOUNTER → 2022-12-01 11:27 | Outpatient (CLI) | payer MEDICARE, SELFPAY ==
--- NOTE | ~2022-12-01 | XR_ITS ---
EXAM: XR knee LT 3V DATE: 12/01/2022 11:50 HISTORY: fall 2 weeks ago pain left knee . COMPARISON: None available. FINDINGS: Decreased mineralization. No fracture or dislocation. No lytic or blastic lesion. Moderate medial joint space narrowing. Mild tricompartmental osteophytosis. Moderate volume joint fluid. No e rosion or periosteal change. Soft tissues within normal limits. IMPRESSION: No acute osseous finding in the left knee. Reviewed, dictated and finalized at location K. UTIVE VP
--- NOTE | ~2022-12-01 | XR_ITS ---
EXAMINATION:XR_CERV2-3V_CR DATE: 12/01/2022 11:51 INDICATION: Neck pain TECHNIQUE: AP, lateral, and odontoid views of the cervical spine are provided. COMPARISON: CT, 11/15/2022 FINDINGS: There are 2 mm of unchanged anterolisthesis of C3 on C4. There are changes of laminectomy f rom C3 through C6. There are changes of anterior fusion at C5-6 The odontoid is intact. No fracture i s identified. The vertebral body heights are maintained. There is severe loss of intervertebral disc space height at C4-5. Prevertebral soft tissues are normal. There is multilevel severe facet joint os teoarthritis. IMPRESSION: 1. Surgical changes and moderate cervical spondylosis without acute findings. Reviewed, dictated and finalized at location L. F TECHNOLOGIST
--- NOTE | ~2022-12-01 | XR_ITS ---
EXAMINATION: XR chest 2V Exam Date/Time: 12/01/2022 11:31 MATERIALS RESEARCH ENGINEER HISTORY: fall 2 weeks ago chest pain Comparison: 11/14/2022. RESULT: Lines, tubes, and devices: Cervical fusion hardware. Cholecystectomy clips.. Lungs and pleura: No focal consolidation pneumothorax or large effusion. Mild left lateral costophre kolton angle blunting. Linear scar/atelectasis in the left lung base. Cardiomediastinal silhouette: Stable. Other: No acute osseous or upper abdominal finding. IMPRESSION: Small left pleural effusion versus chronic pleural parenchymal scarring. Reviewed, dictated and finalized at location K. RIALS RESEARCH ENGINEER
== END ==
PROVIDERS: PCP Internal Medicine; Visit Provider Clinical Nurse Specialist
DX: M25.562 Pain in left knee (principal); J98.6 Disorders of diaphragm; R07.9 Chest pain, unspecified; M47.892 Other spondylosis, cervical region; J90 Pleural effusion, not elsewhere classified
CPT/HCPCS: 71046; 72040; 73562

== ENCOUNTER 2023-12-01 14:05 | Outpatient (CLI) | payer MEDICARE, SELFPAY ==
--- NOTE | ~2023-12-01 | MR_ITS ---
EXAMINATION: MR brain/brain stem wo/w con DATE: 12/01/2023 17:13 INDICATION: Syncope and collapse. TECHNIQUE: Magnetic resonance imaging (MRI) of the brain and brainstem was performed without and with 14 mL MultiHance intravenous contrast. COMPARISON: Brain MRI 04/25/2017, head CT 11/15/2022 FINDINGS: There is no intracranial hemorrhage, acute infarction, or abnormal intracranial mass lesion . There is an old infarct in right thalamus. There are scattered areas of nonspecific increased T2-we ighted signal intensity in the cerebral white matter and bilateral basal ganglia. There is no intracr anial hemorrhage, acute infarction, or abnormal intracranial mass lesion. The ventricles are normal i n size. The paranasal sinuses are clear. There are likely changes of ocular lens replacement surgerie s. There is a trace left mastoid effusion. IMPRESSION: 1. 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 2. Moderate nonspecific cerebral white matter disease and disease of the bilateral basal ganglia, wor sened from 04/25/2017, which likely represents chronic small vessel ischemic disease. Reviewed, dictated and finalized at location A. TAL COORDINATOR IMPRESSION: 1. 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 2. Moderate nonspecific cerebral white matter disease and disease of the bilate ral basal ganglia, worsened from 04/25/2017, which likely represents chronic smal l vessel ischemic disease.
[2023-12-01 14:44] LABS: Basophils Absolute Auto 0.1 K/mm3 (0.0-0.1); Basophils Percent Auto 1.5 % (0.2-1.2); Eosinophils Absolute Auto 0.4 K/mm3 (0-0.3); Eosinophils Percent Auto 4.9 % (0-4.4); Hematocrit 41.3 % (37.0-47.0); Hemoglobin 12.5 g/dL (12.0-15.0); Immature Granulocyte Absolute 0.09 K/mm3 (0.00-0.031); Immature Granulocyte Percent A 1.3 % (0-0.5); Lymphocytes Absolute Auto 1.25 K/mm3 (0.9-3.2); Lymphocytes Percent Auto 17.5 % (18.3-44.2); Mean Corpuscular HGB Conc 30.3 g/dl (32-36); Mean Corpuscular Hemoglobin 28.9 pg (26-34); Mean Corpuscular Volume 95.6 fl (80-100); Monocytes Absolute Auto 0.4 K/mm3 (0.1-0.6); Neutrophils Absolute Auto 4.9 K/mm3 (1.3-6.7); Neutrophils Percent Auto 68.8 % (45.5-73.1); Platelet Count Result 346 k/mm3 (150-375); Red Blood Count 4.32 M/mm3 (4.2-5.4); Red Cell Distribution Width 13.4 % (11.5-14.5); White Blood Count 7.2 K/mm3 (4.5-10.0)
[2023-12-01 15:15] LABS: Alanine Aminotransferase 13 U/L (6-35); Albumin Level 4.4 g/dL (3.5-5.1); Alkaline Phosphatase 60 U/L (38-126); Anion Gap 9 mmol/L (8-16); Aspartate Amino Transferase 28 U/L (14-36); Bilirubin,Total 0.6 mg/dL (0.2-1.3); Blood Urea Nitrogen 18 mg/dL (7-17); Calcium 9.3 mg/dL (8.4-10.2); Carbon Dioxide 29 mmol/L (22-30); Chloride 100 mmol/L (98-107); Estimated Glomerular Filt Rate 42; Glucose 108 mg/dL (65-110); Potassium 4.9 mmol/L (3.4-5.0); Sodium 138 mmol/L (137-145)
[2023-12-01] MEDS: PERFLUTREN LIPID MICROSPHERES 1.5 ML VIAL DILUTED TO 10 ML TOTAL VOLUME IV PUSH (15:50)
--- NOTE | 2023-12-01 16:43 | IVDEFINITY ---
Prior to administration of IV Definity the patient was educated on the risks and benefits of the imaging enhancing agent including potential adverse side effects. The patient verbalized understanding. Allergies were verified. No exclusion criteria were identified and at least one of the following inclusion criteria were met: 1) physician request, 2) patient technically difficult to image (per the [place] [employer] Echocardi[employer] guidelines of two or more segments not discernable within the apical view), or 3) questionable left ventricular function. ?
== END 2023-12-01 14:06 | disposition home or self-care (01) ==
PROVIDERS: PCP Internal Medicine; Visit Provider Nurse Practitioner
DX: F41.9 Anxiety disorder, unspecified (principal); E78.6 Lipoprotein deficiency; R90.82 White matter disease, unspecified; Z86.73 Personal history of transient ischemic attack (TIA), and cerebral infarction without residual deficits
CPT/HCPCS: 36415; 70553; 80053; 84443; 85025; A9577; Q9957

== ENCOUNTER 2023-12-16 09:39 | Outpatient (CLI) | payer MEDICARE, SELFPAY ==
--- NOTE | ~2023-12-16 | US_ITS ---
EXAMINATION: US carotid duplex BI DATE: 12/16/2023 11:54 INDICATION: Vertigo, syncope and collapse TECHNIQUE: Grayscale, color Doppler, and pulsed Doppler images of the cervical carotid arteries were obtained. The degree of vessel stenosis is placed in one of the following categories: normal, <50%, 5 0-69%, >=70% but less than near-occlusion, near-occlusion, or total occlusion. Note that percent sten osis relative to normal distal artery lumen diameter is indirectly measured from velocity measurement s as described by Augustin, et al. Radiology 2003; [id number]. COMPARISON: None. FINDINGS: RIGHT: The right common carotid artery (CCA) peak systolic velocity (PSV) is 58 cm/s. The right internal car otid artery (ICA) PSV is 58 cm/s. The right ICA end-diastolic velocity (EDV) is 16 cm/s. The right IC A/CCA PSV ratio is 1.0. Grayscale and color Doppler images yield an estimate of <50% diameter reducti on from plaque in the ICA. The external carotid artery (ECA) PSV is 148 cm/s. There is antegrade flow in the right vertebral artery. LEFT: The left CCA PSV is 80 cm/s. The left ICA PSV is 85 cm/s. The left ICA EDV is 14 cm/s. The left ICA/C CA PSV ratio is 1.1. Grayscale and color Doppler images yield an estimate of <50% diameter reduction from plaque in the ICA. The ECA PSV is 79 cm/s. There is antegrade flow in the left vertebral artery. IMPRESSION: 1. <50% stenosis in the right internal carotid artery. 2. <50% stenosis in the left internal carotid artery. Reviewed, dictated and finalized at location A. UTER LAB ASSISTANT
--- NOTE | ~2023-12-16 | US_ITS ---
US renal BI 12/16/2023 11:45 Procedure: Realtime transabdominal ultrasound of the kidneys and bladder. Indication: Disorder of the adrenal gland. Comparison: CT dated 07/02/2020 Findings: Renal echotexture is normal bilaterally without hydronephrosis, contour deforming mass or r enal calculus. The right kidney measures 9.7 cm and left kidney measures 9.2 cm. Bladder within norm al limits. Impression: 1: Unremarkable renal ultrasound. No stones, masses or hydronephrosis. Reviewed, dictated and finalized at location L. PIECE EXPANSION MAKER HAND Impression: 1: Unremarkable renal ultrasound. No stones, masses or hydronephrosis.
== END 2023-12-16 09:40 | disposition home or self-care (01) ==
LOC: ANHIMG 09:44
PROVIDERS: PCP Internal Medicine; Visit Provider Nurse Practitioner
DX: I65.23 Occlusion and stenosis of bilateral carotid arteries (principal); R55 Syncope and collapse; E27.8 Other specified disorders of adrenal gland
CPT/HCPCS: 76775; 93880

== ENCOUNTER 2024-04-20 10:30 | Outpatient (CLI) | payer MEDICARE, SELFPAY ==
--- NOTE | ~2024-04-20 | MR_ITS ---
EXAMINATION: MR lumbar spine wo con DATE: 04/20/2024 11:23 INDICATION: Low back pain. Lumbar radiculopathy. TECHNIQUE: Magnetic resonance imaging (MRI) of the lumbar spine was performed without intravenous con trast. Sequences included sagittal T2-weighted FSE, sagittal T2-weighted FS FSE, sagittal T1-weighted FSE, and axial T2-weighted FSE. COMPARISON: Lumbar spine MRI 01/28/2022 FINDINGS: There is 7 degrees levocurvature of lumbar spine. There is mild chronic anterior wedging of T12-L2 vertebral bodies. There is mildly decreased disc height at L1-L2, L2-L3, and L4-L5. The dista l spinal cord signal intensity is normal. The conus medullaris is at L1. The following disc levels ar e specifically discussed: L1-L2: The disc is bulging and has an annular fissure. There is severe bilateral facet joint osteoart hritis. There is mild left neural foraminal stenosis. There is mild central canal stenosis. L2-L3: The disc is bulging and has an annular fissure. There is severe bilateral facet joint osteoart hritis. There is mild bilateral neural foraminal stenosis. There is mild central canal stenosis. L3-L4: The disc is bulging. There is severe bilateral facet joint osteoarthritis. There is mild bilat eral neural foraminal stenosis. There is no central canal stenosis. L4-L5: The disc is bulging and has an annular fissure. There is severe bilateral facet joint osteoart hritis. There is mild bilateral neural foraminal stenosis. There is mild central canal stenosis. L5-S1: The disc is bulging. There is severe bilateral facet joint osteoarthritis. There is mild left neural foraminal stenosis. There is mild central canal stenosis. IMPRESSION: 1. Mild lumbar spondylosis. Reviewed, dictated and finalized at location A. IMPRESSION: 1. Mild lumbar spondylosis.
== END 2024-04-20 10:31 ==
LOC: GOSHIMG 10:31
PROVIDERS: PCP Internal Medicine; Visit Provider Nurse Practitioner Family
DX: M43.06 Spondylolysis, lumbar region (principal)
CPT/HCPCS: 72148

== ENCOUNTER 2024-05-30 15:29 | Emergency (ER) | payer MEDICARE, SELFPAY ==
[2024-05-30] VITALS (10 sets, daily range): BP systolic 160–186; BP diastolic 50–81; PULSE 66–77; RESP 14–19; TEMP 36.6; O2SAT 94–99
--- NOTE | ~2024-05-30 | XR_ITS ---
EXAMINATION: XR chest 2V DATE: 05/30/2024 15:57 INDICATION: Chest pain. Nausea. TECHNIQUE: Frontal and lateral views of the chest were obtained. COMPARISON: Chest 2 views 12/01/2022, left shoulder radiographs 11/14/2022 FINDINGS: There is no pneumonia, pleural effusion, or pneumothorax. The heart size is normal. There a re changes of anterior fusion procedure in cervical spine. 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 Surgical clips in the right upper quadrant are julius beltran from cholecystectomy. IMPRESSION: 1. No acute cardiopulmonary disease. Reviewed, dictated and finalized at location E.
--- NOTE | 2024-05-30 15:31 | ECG_ITS ---
Test Date: 2024-05-30 15:37:39 Measurements Intervals [place] Rate: 69 P: 87 OK: 194 QRS: 49 QRSD: 77 T: 149 QT: 397 QTc: 428 Interpretive Statements SINUS RHYTHM RSR' IN V1 OR V2, PROBABLY NORMAL VARIANT ST-T WAVE ABNORMALITY IN HIGH LATERAL LEADS- CONSIDER ISCHEMIA BASELINE ARTIFACT- I, II, III, AVR, AVL, AVF ABNORMAL ECG No previous ECG available for comparison Electronically Signed On 05-30-2024 15:50:34 CDT by Joseph Finch D.O.
[2024-05-30 16:06] LABS: Basophils Absolute Auto 0.1 K/mm3 (0.0-0.1); Basophils Percent Auto 1.1 % (0.2-1.2); Eosinophils Absolute Auto 0.2 K/mm3 (0-0.3); Eosinophils Percent Auto 2.8 % (0-4.4); Hematocrit 40.5 % (37.0-47.0); Hemoglobin 12.6 g/dL (12.0-15.0); Immature Granulocyte Absolute 0.07 K/mm3 (0.00-0.031); Immature Granulocyte Percent A 1.1 % (0-0.5); Mean Corpuscular HGB Conc 31.1 g/dl (32-36); Mean Corpuscular Volume 93.1 fl (80-100); Mean Platelet Volume 8.9 fl (7.4-10.4); Monocytes Absolute Auto 0.5 K/mm3 (0.1-0.6); Monocytes Percent Auto 7.3 % (2.6-8.5); Neutrophils Percent Auto 62.7 % (45.5-73.1); Platelet Count Result 360 k/mm3 (150-375); Red Blood Count 4.35 M/mm3 (4.2-5.4); Red Cell Distribution Width 13.7 % (11.5-14.5); White Blood Count 6.4 K/mm3 (4.5-10.0)
[2024-05-30 16:12] LABS: Alanine Aminotransferase 15 U/L (6-35); Albumin Level 4.4 g/dL (3.5-5.1); Alkaline Phosphatase 68 U/L (38-126); Anion Gap 9 mmol/L (4-12); Aspartate Amino Transferase 27 U/L (14-36); Bilirubin,Total 0.5 mg/dL (0.2-1.3); Blood Urea Nitrogen 16 mg/dL (7-17); Calcium 9.4 mg/dL (8.4-10.2); Carbon Dioxide 28 mmol/L (22-30); Chloride 104 mmol/L (98-107); Estimated CRCL calculation 36 ml/min; Estimated Glomerular Filt Rate 59; Glucose 135 mg/dL (65-110); Lipase 242 U/L (23-300); Sodium 141 mmol/L (137-145)
[2024-05-30 16:23] LABS: Troponin I < 0.012 ng/mL (0.000-0.034)
--- NOTE | 2024-05-30 18:42 | ECG_ITS ---
Test Date: 2024-05-30 18:47:50 Measurements Intervals [place] Rate: 71 P: 94 NC: 195 QRS: 13 QRSD: 88 T: 163 QT: 402 QTc: 437 Interpretive Statements SINUS RHYTHM WITH OCCASIONAL SUPRAVENTRICULAR PREMATURE COMPLEXES POSSIBLE RIGHT VENTRICULAR CONDUCTION DELAY ST-T WAVE ABNORMALITY IN ANTEROLAT/HIGH LAT LEADS- CONSIDER ISCHEMIA BASELINE ARTIFACT- I, II, III, AVR, AVL, AVF, V1-V6 ABNORMAL ECG Compared to ECG 05/30/2024 15:37:39 No significant changes Electronically Signed On 05-31-2024 06:07:29 CDT by Joseph Finch D.O.
[2024-05-30] MEDS: ACETAMINOPHEN 500 MG TABLET 1000 MG PO (19:06)
[2024-05-30 19:16] LABS: Troponin I < 0.012 ng/mL (0.000-0.034)
--- NOTE | 2024-05-30 19:57 | ED.CHESTPAIN ---
HPI - Chest Pain General Chief Complaint: Chest Pain Stated Complaint: chest pain Time Seen by Provider: 05/30/24 18:03 Source: patient Mode of arrival: ambulatory Limitations: no limitations History of Present Illness HPI narrative: patient is an 88-year-old female who presents the ED with report of chest pain. Patient is a resident of [facility]. She reports she had an episode of midsternal chest pain earlier this morning. States the chest pain lasted a few minutes before resolving on its own. She was sitting down when the chest pain occurred. Denied aggravation with exertion. Denied shortness breath, nausea, diaphoresis associated with the pain. Has not had any further pain since this morning. Denies previous history of heart disease. Does have history of hypertension/ hyperlipidemia. Does currently complain of RAMOS. Denies lower extremity pain or swelling, recent cough or cold symptoms, fevers, abdominal pain. Related Data Home Medications Medication Instructions Recorded Confirmed gabapentin 300 mg capsule 300 mg PO BID 12/22/22 12/23/23 hydrocodone 5 mg-acetaminophen 325 1 tablet PO BID PRN 12/28/23 mg tablet Allergies Allergy/AdvReac Type Severity Reaction Status Date / Time morphine AdvReac Severe Vomiting Verified 05/30/24 18:50 Review of Systems Review of Systems: CONSTITUTIONAL: Denies fever, chills, or sweats. CARDIOVASCULAR: See HPI RESPIRATORY: Denies cough or dyspnea. GASTROINTESTINAL: Denies abdominal pain, nausea, vomiting MUSCULOSKELETAL: Denies back pain, extremity pain, myalgia. All systems reviewed & are unremarkable except as noted in HPI and below PMFSH Past Medical History Medical History Cervical os stenosis Chronic pain Diverticulitis DVT prophylaxis Essential (primary) hypertension Gastroesophageal reflux Herpes zoster without complication History of vaginal delivery x 5 1 stillborn Hx of stroke without residual deficits Incidentally found on head CT 11/14/22 Hypocholesteremia Irritable bowel syndrome (IBS) Osteoarthritis Overweight (BMI 25.0-29.9) Polyarthritis with positive rheumatoid factor Surgical History Surgical History H/O spinal fusion Cervical spine History of appendectomy History of cholecystectomy History of hysterectomy Hx of neck surgery Family History Family History Mother Family history of malignant neoplasm of breast Hypertension Family history of cardiovascular disease Father Family history of lung cancer Alcoholism Hypertension Sibling Alcoholism Hypertension Sibling Cancer Social History Social History Social History: caffeine Smoking packs per day: 1 Smoking cigarettes per day: 20.0 Years smoked: 30 Smoking pack-years: 30.00 Smoking status: Former smoker Tobacco type: cigarettes Smoking end date: 11/22/90 Alcohol intake: never Substance use: never Substance use type: does not use Do You Feel Safe in your Home?: Yes Living arrangements: alone Gender identity (if verbalized by the patient): Female Spiritual care concerns: No Exam Narrative: GENERAL: Elderly, well-nourished, non-toxic, in no acute distress. HEAD: Normocephalic, atraumatic. RESPIRATORY: Airway patent, respirations nonlabored. Clear to auscultation bilaterally, no rales, rhonchi, wheezing. No focal lung sounds. CARDIOVASCULAR: Regular rate and rhythm without murmurs, rubs, or gallops. ABDOMINAL: Soft, nontender, nondistended. Normoactive BS. MUSCULOSKELETAL: Moves all extremities. No gross deformities. no chest wall tenderness to palpation. No calf tenderness. No lower extremity swelling. SKIN: Warm, dry, normal color. NEURO: A&O X3. S
[2024-05-30] MEDS: amLODIPine BESYLATE 5 MG TABLET PO (20:34)
== END 2024-05-30 20:44 ==
PROVIDERS: Preventive Medicine Aerospace Medicine; Emergency Provider Physician Assistant; PCP Internal Medicine
DX: R07.89 Other chest pain (principal); I10 Essential (primary) hypertension; E78.00 Pure hypercholesterolemia, unspecified; E66.3 Overweight; Z68.25 Body mass index [BMI] 25.0-25.9, adult; K58.9 Irritable bowel syndrome, unspecified; K21.9 Gastro-esophageal reflux disease without esophagitis; M19.90 Unspecified osteoarthritis, unspecified site; M05.9 Rheumatoid arthritis with rheumatoid factor, unspecified; Z98.1 Arthrodesis status; Z86.73 Personal history of transient ischemic attack (TIA), and cerebral infarction without residual deficits; Z87.891 Personal history of nicotine dependence; Z90.49 Acquired absence of other specified parts of digestive tract; Z90.710 Acquired absence of both cervix and uterus; Z79.899 Other long term (current) drug therapy; R94.31 Abnormal electrocardiogram [ECG] [EKG]
CPT/HCPCS: 36415; 71046; 80053; 83690; 84484; 85025; 85610; 85730; 93005; 99284; A9270

== ENCOUNTER 2024-10-30 00:48 | Day surgery (SDC) | payer MEDICARE, SELFPAY ==
[2024-10-24 14:47] VITALS: BMI 29.4
--- NOTE | 2024-10-24 15:01 | PC.NURSE ---
Report to the Outpatient Waiting Room, entrance under the green pavilion located off [facility], at time __07:00am___ on date __10/30/24 . Planned Procedure Time: _09:00am .? Time changes happen often and if your time is changed the preop area will call you the afternoon before. - You and your visitor will be asked to self-screen and do not enter if you have any COVID symptoms. Please call surgeon if you need to reschedule. - A mask is optional within the hospital at this time. Patients may have clear liquids (water, carbonated beverages, clear teas, apple juice) until 3 hours prior to surgery with a maximum of 20 ounces. - No food from midnight until time of surgery and no smoking. This includes no chewing gum, candy or mints.(06:00am) Take only the following medications with a SIP of water on the morning of surgery: __Amlodipine, Gabapentin, Sertaline, and Cyclobenzaprine and Hydrocodone if needed DO NOT STOP ANY OF YOUR OTHER PRESCRIPTION MEDICATIONS PRIOR TO SURGERY EXCEPT THE FOLLOWING Medications to discontinue per physician None Date to take last dose____None Please no make-up, nail spanish, hairspray, perfume, deodorant, or body powder the day of surgery.? No jewelry (including any body piercings) or valuables the day of surgery, leave them at home.? Please take a shower or bath the night before, or the morning of, surgery with an antibacterial soap.? Wear comfortable, loose fitting clothing.? - Jewelry must be removed prior to entering the operating room.? Rings and piercings that are not removed may be cut off. - The hospital will not accept responsibility for valuables.? - Please leave all valuables, including medications, at home the day of surgery. If you are going home after surgery, a licensed rear load truck driver must drive you home.? - NO public transportation without another adult if you receive anesthesia. - We recommend that an adult stay with you for 24 hours following discharge. - We also recommend that you do not drive, make important decision, drink alcoholic beverages, or take any drugs that were not prescribed by your health care provider for at least 24 hours after your discharge time. Follow any additional instructions given to you from your surgeon. Telephone instructions given to __Patient and asked if any additional questions and then verbalized understanding. Patient advised to call surgeon office or pre surgery nurse liaison [phone] if any additional questions.
[2024-10-30] VITALS (10 sets, daily range): BP systolic 96–138; BP diastolic 45–82; PULSE 59–78; RESP 11–18; TEMP 36.7–36.9; O2SAT 96–100
[2024-10-30] MEDS: LACTATED RINGERS 1,000 ML 30 ML IV CONT (07:00)
--- NOTE | 2024-10-30 07:10 | WPDHPUPDATE1 ---
History and Physical Update Update Date/Time: 10/30/24 07:10 History and Physical has been reviewed, including an updated exam of the patient. There are NO changes in the patient's condition. Risks, benefits, and alternatives have been discussed and questions answered. Patient agrees to proceed with procedure.
--- NOTE | 2024-10-30 08:28 | P.PNAN_ITS ---
Anes - Initial Pre Proc Eval Procedure: Operation Date: 10/30/24 09:00 Proposed Procedures p Direct Laryngoscopy, with Vocal Cord Biopsy - Aashish Coates MD Date/Time: 10/30/24 08:28 Surgeon: Aashish Coates MD Pre Op Diagnosis: vocal cord mass Patient Data Age: 88 Gender: F Height: 1.57 m Weight: 73 kg Last Vital Signs Temp 36.9 C 10/30/24 07:10 Pulse 73 10/30/24 07:10 Resp 16 10/30/24 07:10 BP 138/60 10/30/24 07:10 Pulse Ox 100 10/30/24 07:10 O2 Del Method Room Air 10/30/24 07:10 Allergies Allergy/AdvReac Type Severity Reaction Status Date / Time morphine AdvReac Severe Vomiting Verified 10/30/24 07:47 Home Medications Medication Instructions Recorded Confirmed Type gabapentin 300 mg capsule 600 mg PO BID 12/22/22 10/30/24 History sertraline 50 mg tablet 50 mg PO DAILY #90 tabs 12/13/23 10/30/24 Rx hydrocodone 5 mg-acetaminophen 325 1 tablet PO BID PRN Pain 12/28/23 10/30/24 History mg tablet cyclobenzaprine 10 mg tablet 5 mg PO TID PRN muscle spasm 06/08/24 10/30/24 History amlodipine 5 mg tablet 5 mg PO DAILY #90 tabs 08/28/24 10/30/24 Rx pravastatin 40 mg tablet 40 mg PO DAILY #90 tabs 08/28/24 10/30/24 Rx diphenhydramine 25 1 tablet PO HS PRN Sleep 10/24/24 10/30/24 History mg-acetaminophen 500 mg tablet (Tylenol PM Extra Strength) Patient hx anesthesia problems: none Family hx anesthesia problems: none Results Review: All pre-operative results and documents have been reviewed as part of the pre- operative evaluation. [facility] Past Medical History Medical History Cervical os stenosis Chronic pain Diverticulitis DVT prophylaxis Essential (primary) hypertension Gastroesophageal reflux Herpes zoster without complication History of vaginal delivery x 5 1 stillborn Hx of stroke without residual deficits Incidentally found on head CT 11/14/22 Hypocholesteremia Irritable bowel syndrome (IBS) Osteoarthritis Overweight (BMI 25.0-29.9) Polyarthritis with positive rheumatoid factor Surgical History Surgical History H/O spinal fusion Cervical spine History of appendectomy History of cholecystectomy History of hysterectomy Hx of neck surgery Family History Family History Mother Family history of malignant neoplasm of breast Hypertension Family history of cardiovascular disease Father Family history of lung cancer Alcoholism Hypertension Sibling Alcoholism Hypertension Sibling Cancer Social History Social History Social History: caffeine Smoking packs per day: 1 Smoking cigarettes per day: 20.0 Years smoked: 30 Smoking pack-years: 30.00 Smoking status: Former smoker Tobacco type: cigarettes Smoking end date: 11/22/90 Alcohol intake: never Substance use: never Substance use type: does not use Do You Feel Safe in your Home?: Yes Living arrangements: alone Gender identity (if verbalized by the patient): Female Spiritual care concerns: No Anes - Eval Final PreProcedure Day of Procedure 10/30/24 08:28 Patient weight: overweight Heart: regular rate and rhythm Lungs: clear to auscultation Airway: Mallampati scale class II and special considerations poor extension Neurological: alert and oriented Last oral intake: >/= 8 hours ASA classification: III Emergent: no Anesthetic plan: proceed Anesthesia type and monitoring: general ETT and standard monitoring Results Review: All pre-operative results and documents have been reviewed as part of the pre- operative evaluation. Informed Consent: The patient's anesthetic plan and its attendant risks and benefits were discussed with the patient/family/POA. Questions were solicited and answers provided to the satisfaction of the patient/family/POA.
--- NOTE | 2024-10-30 08:29 | W.PM.PROC2 ---
Procedure Note - Detailed Date of Procedure 10/30/24 Pre-op Diagnosis vocal cord mass Post-op Diagnosis Same Procedure Performed direct laryngoscopy with biopsy, endoscopic Surgeon Aashish Coates MD Anesthesia General Indications left vocal mass Description of Procedure On the date of surgery, the patient was identified in the preoperative holding area. All questions answered, consent signed and verified and they agreed to proceed. They were then brought to the OR and placed under general endotracheal anesthesia with a 6.0 sized endotracheal tube. A shoulder roll was placed. Timeout was performed verifying the correct patient identity and procedure to be performed which they were. The patient was then draped in standard fashion for direct laryngoscopy with biopsy. The bed was rotated 90 degrees counter-clockwise and a dental guard was placed to protect the upper teeth. A laryngoscope was then advanced in the oral cavity and upper airway to visualize all subsites of the oral cavity, oropharynx, hypopharynx and larynx. The only lesions noted were on the larynx. The patient was then suspended from the negron stand. Under endoscopic visualization, left vocal mass was visualized and carefully removed with biopsy forceps, limiting damage to healthy mucosa. Minimal bleeding occurred and did not require significant intervention for hemostasis. With all specimen removed, the procedure was concluded. The laryngoscope was removed, the dental guard removed, and the oral cavity was examined showing no injury to lips, gums, teeth or tongue. Care of the patient was returned to anesthesia who extubated the patient and transferred to the PACU for recovery in stable condition without complication. Estimated Blood Loss 1 Drains No Packing No Pathology Yes (left vocal mass) Complications No immediate complications Condition Stable Disposition PACU
[2024-10-30] MEDS: OXYMETAZOLINE HCL 0.05% NAS 15 ML BTL (*BKC) 1 SPRAY NASAL (08:59)
[2024-10-30] MEDS: fentaNYL CITRATE INJ (*CRX) 100 MCG/2 ML VIAL 25 MCG IV PUSH (09:34)
[2024-10-30] MEDS: ACETAMINOPHEN 500 MG TABLET 1000 MG PO (11:01)
== END 2024-10-30 11:23 | disposition home or self-care (01) ==
PROVIDERS: PCP Internal Medicine; Visit Provider Otolaryngology
PROC: 0CJS8ZZ Inspection of Larynx, Via Natural or Artificial Opening Endoscopic (ICD-10-PCS; CPT 31535; principal; 2024-10-30 09:00)
DX: J38.7 Other diseases of larynx (principal); G89.29 Other chronic pain; I10 Essential (primary) hypertension; K21.9 Gastro-esophageal reflux disease without esophagitis; E78.00 Pure hypercholesterolemia, unspecified; K58.9 Irritable bowel syndrome, unspecified; N88.2 Stricture and stenosis of cervix uteri; M19.90 Unspecified osteoarthritis, unspecified site; Z79.891 Long term (current) use of opiate analgesic; Z98.890 Other specified postprocedural states; Z98.1 Arthrodesis status; Z90.49 Acquired absence of other specified parts of digestive tract; Z87.891 Personal history of nicotine dependence; Z87.19 Personal history of other diseases of the digestive system; Z86.718 Personal history of other venous thrombosis and embolism; Z86.73 Personal history of transient ischemic attack (TIA), and cerebral infarction without residual deficits; Z80.3 Family history of malignant neoplasm of breast; Z80.1 Family history of malignant neoplasm of trachea, bronchus and lung; Z82.49 Family history of ischemic heart disease and other diseases of the circulatory system
CPT/HCPCS: 31535; 88305; 88342; A9270; J0330; J2003; J2405; J2704; J3010; J7120

== ENCOUNTER 2024-12-12 10:34 | Outpatient (CLI) | payer MEDICARE, SELFPAY ==
--- NOTE | ~2024-12-12 | XR_ITS ---
Right Knee Technique: AP, lateral, and sunrise views were obtained. Clinical History: Pain Findings: No fracture or dislocation is seen. Osseous alignment is anatomic. Joint spaces are preserv ed, with mild degenerative spurring at the patella and lateral joint line. Soft tissues are unremarka ble. No joint effusion is seen. Impression: Mild degenerative spurring, as above. Reviewed, dictated and finalized at location . [employer] Impression: Mild degenerative spurring, as above.
== END 2024-12-12 10:35 | disposition home or self-care (01) ==
LOC: MICIMG 10:36
PROVIDERS: PCP Internal Medicine; Visit Provider Nurse Practitioner Family
DX: M25.761 Osteophyte, right knee (principal)
CPT/HCPCS: 73564

== ENCOUNTER 2025-05-14 08:32 | Outpatient (CLI) | payer MEDICARE, SELFPAY ==
--- NOTE | ~2025-05-14 | CT_ITS ---
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 Comparison: December 01, 2024 Technique: CT soft tissues neck was performed with contrast. . Automated exposure control and iterat stephanie reconstruction technique were employed. The dose-length product was 483.46 mGy-cm. 75 mL Omnipaqu e 350 was given IV. Findings: LOWER HEAD: The visualized brain parenchyma, optic globes/orbits and mastoids are normal. The visua lized paranasal sinuses are well aerated. SALIVARY GLANDS: Normal. THYROID: Bilateral hypodensities suggestive of cysts or nodules. Ultrasound evaluation advised. SUPRAHYOID DEEP SPACES: Small lymph node is seen in the right parapharyngeal space. CAROTID ARTERIES: Moderate to severe atherosclerotic changes of the left carotid artery. Mild to mode rate atherosclerotic changes in the right. JUGULAR VEINS: Normal. TONSILS: Normal. ORAL CAVITY: Partially obscured by dental amalgam but normal as visualized. PHARYNX, LARYNX AND TRACHEA: Patent and normal. No prevertebral soft tissue swelling. Slightly increa sed density is seen in the vocal cords. Clinical correlation advised.. SUPERFICIAL SOFT TISSUES: Normal. No lymphadenopathy or neck mass. THORACIC INLET/VISUALIZED UPPER CHEST: Prevascular lymph node is seen in the mediastinum measuring 9 mm precarinal lymph node seen measures 1.1 cm.. Otherwise, Normal. SKELETAL: Age appropriate degenerative changes. Postoperative changes at the level of C5-C6. IMPRESSION: Increased density in the area of the vocal cords. Clinical evaluation advised. Otherwise, No signific ant change from previous examination. Reviewed, dictated and finalized at location A. IMPRESSION: Increased density in the area of the vocal cords. Clinical evaluation advised. Otherwise, No significant change from previous examination.
[2025-05-14 09:02] LABS: Estimated Glomerular Filt Rate 52
== END 2025-05-14 08:33 | disposition home or self-care (01) ==
PROVIDERS: PCP Internal Medicine; Visit Provider Internal Medicine Hematology & Oncology
DX: C32.9 Malignant neoplasm of larynx, unspecified (principal)
CPT/HCPCS: 70491; Q9967

== ENCOUNTER 2025-05-21 13:39 | Outpatient (CLI) | payer MEDICARE, SELFPAY ==
[2025-05-21 13:52] LABS: Basophils Absolute Auto 0.1 K/mm3 (0.0-0.1); Basophils Percent Auto 1.3 % (0.2-1.2); Eosinophils Absolute Auto 0.2 K/mm3 (0-0.3); Eosinophils Percent Auto 2.4 % (0-4.4); Hematocrit 42.9 % (37.0-47.0); Hemoglobin 13.1 g/dL (12.0-15.0); Immature Granulocyte Absolute 0.03 K/mm3 (0.00-0.031); Immature Granulocyte Percent A 0.4 % (0-0.5); Lymphocytes Absolute Auto 1.45 K/mm3 (0.9-3.2); Lymphocytes Percent Auto 18.6 % (18.3-44.2); Mean Corpuscular HGB Conc 30.5 g/dl (32-36); Mean Corpuscular Hemoglobin 28.8 pg (26-34); Mean Corpuscular Volume 94.3 fl (80-100); Mean Platelet Volume 8.8 fl (7.4-10.4); Monocytes Absolute Auto 0.5 K/mm3 (0.1-0.6); Monocytes Percent Auto 5.9 % (2.6-8.5); Neutrophils Absolute Auto 5.6 K/mm3 (1.3-6.7); Neutrophils Percent Auto 71.4 % (45.5-73.1); Platelet Count Result 274 k/mm3 (150-375); Red Blood Count 4.55 M/mm3 (4.2-5.4); Red Cell Distribution Width 12.8 % (11.5-14.5); White Blood Count 7.8 K/mm3 (4.5-10.0)
[2025-05-21 13:57] LABS: Blood Urea Nitrogen 17 mg/dL (8-26); Carbon Dioxide 26 mmol/L (22-30); Chloride 101 mmol/L (98-109); Estimated Glomerular Filt Rate 39; Glucose 137 mg/dL (70-105); Ionized Calcium (POC) 1.15 mmol/L (1.11-1.31); Sodium 140 mmol/L (138-146)
--- OUTSIDE RECORDS SUMMARY | 2025-05-21 13:58 | XMS_ITS ---
Author Name Auto Generated, Auto Generated Organization [employer] [facility] Address [address] [place] [address] Phone [phone] Care Team Providers Care Frame Runner Name Role Phone Paco Donnelly Unavailable [phone] Romeo Ying Unavailable [phone] Functional Status No Results Mental Status No Results Allergies and Intolerances Name Onset Date Reaction Severity adhesive (Allergy) WedMay 19 13:31:00 EDT 2023 morphine (Allergy) WedMay 19 13:30:00 EDT 2023 Encounters Program Name Primary Diagnosis Admission Date/Time Dis charge Date/Time [facility] WedMay 19 07:30:00 EDT 2023Jun 05 06:15:00 EDT 2023 Medications Medication Directions Start Date End Date amLODIPine 5 mg tablet 1 tablet TABLET O ral 1 Time Daily Indication: HTN Flor May 25 12:15:00 EDT 2023Jun 05 01:00:00 EDT 2023 acetaminophen 500 mg tablet 2 tablets TA BLET Oral PRN Every 6 Hours Maximum dose is 3gm in 24 hours WedMay 23 15:30:00 EDT 2023Jun 05 01:00:00 EDT 2023 gabapentin 300 mg capsule 1 capsule CAPS ULE Oral 2 Times Daily Indication: neuropathy WedMay 19 13:00:00 EDT 2023Jun 05 01:00:00 EDT 2023 cyclobenzaprine 5 mg tablet 1 tablet TAB LET Oral PRN 3 Times Daily Indication: muscle spasms WedMay 19 13:30:00 EDT 2023Jun 05 01:00:00 EDT 2023 HYDROcodone 5 mg-acetaminophen 325 mg tablet 2 tabs TABLET Oral PRN 1 Time Daily Indication: pain WedMay 19 13:00:00 EDT 2023May 30 16:04:00 EDT 2023 lidocaine 4 % topical patch 1 patch ADHE SIVE PATCH, MEDICATED Topical 2 Times Daily Indication: apply patch to area of pain in am, remove HS Pain WedMay 19 13:00:00 EDT 2023Jun 05 01:00:00 EDT 2023 pravastatin 40 mg tablet 1 tablet TABLET Oral 1 Time Daily Indication: cholesterol WedMay 19 13:00:00 EDT 2023Jun 05 01:00:00 EDT 2023 sertraline 50 mg tablet 1 tablet TABLET Oral 1 Time Daily Indication: anxiety WedMay 19 13:00:00 EDT 2023Jun 05 01:00:00 EDT 2023 bisacodyL 5 mg tablet,delayed release 1-3 tablets TABLET, DELAYED RELEASE (ENTERIC COATED) Oral PRN 1 Time Daily Indication: Constipation WedMay 19 19:00:00 EDT 2023Jun 05 01:00:00 EDT 2023 Chest Congestion Relief DM 20 mg-400 mg tablet 1 tablet TABLET Oral PRN Every 6 Hours Indication: Congestion WedMay 19 17:00:00 EDT 2023Jun 05 01:00:00 EDT 2023 acetaminophen 500 mg tablet 2 tablets TA BLET Oral PRN Every 6 Hours Indication: Pain WedMay 19 17:00:00 EDT 2023May 23 15:47:00 EDT 2023 HYDROcodone 5 mg-acetaminophen 325 mg tablet 1-2 tablets TABLET Oral PRN 1 Time Daily Indication: Pain WedMay 19 17:00:00 EDT 2023Jun 05 01:00:00 EDT 2023 acetaminophen PM 25 mg-500 mg tablet 1 tablet TABLET Oral PRN 1 Time Daily Indication: Insomnia WedMay 19 17:00:00 EDT 2023Jun 05 01:00:00 EDT 2023 Problems Active Concerns * Orthostatic hypotension* Code: * Start Date: WedMay 19 00:00:00 EDT 2023 * End Date: * Text: * Hyperkalemia* Code: * Start Date: WedMay 19 00:00:00 EDT 2023 * End Date: * Text: * Laceration without foreign body of scalp, subsequent encounter* Code: * Start Date: WedMay 19 00:00:00 EDT 2023 * End Date: * Text: * Intervertebral disc disorders with radiculopathy, lumbar region* Code: * Start Date: WedMay 19 00:00:00 EDT 2023 * End Date: * Text: * Hypertensive chronic kidney disease with stage 1 through stage 4 chronic kidney disease, or unspecified chronic kidney disease* Code: * Start Date: WedMay 19 00:00:00 EDT 2023 * End Date: * Text: * Chronic kidney disease, stage 3b* Code: * Start Date: WedMay 19 00:00:00 EDT 2023 * End Date: * Text: * Anxiety disorder, unspecified* Code: * Start Date: WedMay 19 00:00:00 EDT 2023 * End Date: * Text: * Unspecified osteoarthritis, unspecified site* Code: * Start Date: WedMay 19 00:00:00 EDT 2023 * End Date: * Text: * Unspecified fall, subsequent encounter* Code: * Start Date: WedMay 19 00:00:00 EDT 2023 * End Date: * Text: * Age-related physical debility* Code: * Start Date: WedMay 19 00:00:00 EDT 2023 * End Date: * Text: * Hyperlipidemia, unspecified* Code: * Start Date: WedMay 19 00:00:00 EDT 2023 * End Date: * Text: * intermediate school teacher (current) use of opiate analgesic* Code: * Start Date: WedMay 19 00:00:00 EDT 2023 * End Date: * Text: * [facility]- Adriana's wishes will be followed (Advanced Directive/Code Status).* Code: * Start Date: WedMay 24 00:00:00 EDT 2023 * End Date: * Text: [facility]- Adriana's wishes will be followed (Advanced Directive/Code Status). * [facility]- Adriana will be involved in goal development to the best of his or her ability.* Code: * Start Date: WedMay 24 00:00:00 EDT 2023 * End Date: * Text: [facility]- Adriana will be involved in goal development to the best of his or her ability. * [facility]- Adriana has family/friends who are supportive.* Code: * Start Date: WedMay 24 00:00:00 EDT 2023 * End Date: * Text: [facility]- Adriana has family/friends who are supportive. * [facility]- Adriana's mobility level is different than prior level due to current medical condition.* Code: * Start Date: WedMay 24 00:00:00 EDT 2023 * End Date: * Text: [facility]- Adriana's mobility level is different than prior level due to current medical condition. * [facility]- Adriana will be involved in discharge planning.* Code: * Start Date: WedMay 24 00:00:00 EDT 2023 * End Date: * Text: [facility] ServicesSridevi Wright will be involved in discharge planning. Resolved Concerns * Problem Syncope and collapse* Code: * Start Date: WedMay 19 00:00:00 EDT 2023 * End Date: WedJun 05 00:00:00 EDT 2023 * Problem Contusion of scalp, subsequent encounter* Code: * Start Date: WedMay 19 00:00:00 EDT 2023 * End Date: WedJun 05 00:00:00 EDT 2023 Vital Signs Vital Sign Measurement Date Systolic Blood Pressure 161.00 mm[Hg] WedJun 05 09:13:46 EDT 2023 Diastolic Blood Pressure 77.00 mm[Hg] WedJun 05 09:13:46 EDT 2023 Systolic Blood Pressure 142.00 mm[Hg] WedJun 04 19:39:00 EDT 2023 Diastolic Blood Pressure 55.00 mm[Hg] WedJun 04 19:39:00 EDT 2023 Heart Rate 74.00 /min WedJun 04 19:39 :00 EDT 2023 Body temperature 97.80 [degF] WedJun 04:3 9:00 EDT 2023 Respiratory rate 18.00 /min WedJun 04: 9:00 EDT 2023 Systolic Blood Pressure 152.00 mm[Hg] WedJun 04 09:51:24 EDT 2023 Diastolic Blood Pressure 61.00 mm[Hg] WedJun 04 09:51:24 EDT 2023 Body weight 161.80 [lb_av] WedJun 04 09:51 :24 EDT 2023 Heart Rate 68.00 /min WedJun 04 09:51 :24 EDT 2023 Body temperature 97.70 [degF] WedJun 04 09:5 1:24 EDT 2023 Respiratory rate 16.00 /min WedJun 04 09:5 1:24 EDT 2023 Systolic Blood Pressure 152.00 mm[Hg] WedJun 04 09:10:56 EDT 2023 Diastolic Blood Pressure 61.00 mm[Hg] WedJun 04 09:10:56 EDT 2023 Systolic Blood Pressure 165.00 mm[Hg] WedJun 04 00:03:16 EDT 2023 Diastolic Blood Pressure 60.00 mm[Hg] WedJun 04 00:03:16 EDT 2023 Heart Rate 70.00 /min WedJun 04 00:03 :16 EDT 2023 Body temperature 97.60 [degF] WedJun 04 00:0 3:16 EDT 2023 Respiratory rate 18.00 /min WedJun 04 00:0 3:16 EDT 2023 Systolic Blood Pressure 135.00 mm[Hg] WedJun 03 08:30:36 EDT 2023 Diastolic Blood Pressure 61.00 mm[Hg] WedJun 03 08:30:36 EDT 2023 Body weight 161.20 [lb_av] WedJun 03 08:30 :36 EDT 2023 Heart Rate 75.00 /min WedJun 03 08:30 :36 EDT 2023 Body temperature 97.80 [degF] WedJun 03 08:3 0:36 EDT 2023 Respiratory rate 18.00 /min WedJun 03 08:3 0:36 EDT 2023 Systolic Blood Pressure 135.00 mm[Hg] WedJun 03 08:09:39 EDT 2023 Diastolic Blood Pressure 61.00 mm[Hg] WedJun 03 08:09:39 EDT 2023 Systolic Blood Pressure 144.00 mm[Hg] WedJun 02 20:08:44 EDT 2023 Diastolic Blood Pressure 65.00 mm[Hg] WedJun 02 20:08:44 EDT 2023 Heart Rate 66.00 /min WedJun 02 20:08 :44 EDT 2023 Body temperature 97.80 [degF] WedJun 02 20:0 8:44 EDT 2023 Respiratory rate 18.00 /min WedJun 02 20:0 8:44 EDT 2023 Body weight 161.60 [lb_av] WedJun 02 10:33 :14 EDT 2023 Systolic Blood Pressure 140.00 mm[Hg] WedJun 02 10:28:53 EDT 2023 Diastolic Blood Pressure 71.00 mm[Hg] WedJun 02 10:28:53 EDT 2023 Heart Rate 72.00 /min WedJun 02 10:28 :53 EDT 2023 Body temperature 98.40 [degF] WedJun 02 10:2 8:53 EDT 2023 Respiratory rate 18.00 /min WedJun 02 10:2 8:53 EDT 2023 Systolic Blood Pressure 140.00 mm[Hg] WedJun 02 09:19:58 EDT 2023 Diastolic Blood Pressure 71.00 mm[Hg] WedJun 02 09:19:58 EDT 2023 Systolic Blood Pressure 152.00 mm[Hg] WedJun 01 20:08:15 EDT 2023 Diastolic Blood Pressure 61.00 mm[Hg] WedJun 01 20:08:15 EDT 2023 Heart Rate 70.00 /min WedJun 01 20:08 :15 EDT 2023 Body temperature 98.60 [degF] WedJun 01 20:0 8:15 EDT 2023 Respiratory rate 20.00 /min WedJun 01 20:0 8:15 EDT 2023 Body weight 162.20 [lb_av] WedJun 01 10:44 :52 EDT 2023 Systolic Blood Pressure 147.00 mm[Hg] WedJun 01 10:29:56 EDT 2023 Diastolic Blood Pressure 63.00 mm[Hg] WedJun 01 10:29:56 EDT 2023 Heart Rate 68.00 /min WedJun 01 10:29 :56 EDT 2023 Body temperature 96.90 [degF] WedJun 01 10:2 9:56 EDT 2023 Respiratory rate 18.00 /min WedJun 01 10:2 9:56 EDT 2023 Systolic Blood Pressure 147.00 mm[Hg] WedJun 01 09:27:33 EDT 2023 Diastolic Blood Pressure 63.00 mm[Hg] WedJun 01 09:27:33 EDT 2023 Systolic Blood Pressure 125.00 mm[Hg] WedMay 31 23:03:48 EDT 2023 Diastolic Blood Pressure 64.00 mm[Hg] WedMay 31 23:03:48 EDT 2023 Heart Rate 77.00 /min WedMay 31 23:03 :48 EDT 2023 Body temperature 97.30 [degF] WedMay 31 23:0 3:48 EDT 2023 Respiratory rate 18.00 /min WedMay 31 23:0 3:48 EDT 2023 Body weight 162.40 [lb_av] WedMay 31 10:26 :09 EDT 2023 Systolic Blood Pressure 158.00 mm[Hg] WedMay 31 09:05:41 EDT 2023 Diastolic Blood Pressure 69.00 mm[Hg] WedMay 31 09:05:41 EDT 2023 Systolic Blood Pressure 158.00 mm[Hg] WedMay 31 09:05:41 EDT 2023 Diastolic Blood Pressure 69.00 mm[Hg] WedMay 31 09:05:41 EDT 2023 Heart Rate 67.00 /min WedMay 31 09:05 :41 EDT 2023 Body temperature 98.50 [degF] WedMay 31 09:0 5:41 EDT 2023 Respiratory rate 18.00 /min WedMay 31 09:0 5:41 EDT 2023 Body weight 162.20 [lb_av] WedMay 30 13:30 :08 EDT 2023 Body weight 159.60 [lb_av] WedMay 30 11:54 :52 EDT 2023 Systolic Blood Pressure 159.00 mm[Hg] WedMay 30 10:02:18 EDT 2023 Diastolic Blood Pressure 65.00 mm[Hg] WedMay 30 10:02:18 EDT 2023 Heart Rate 56.00 /min WedMay 30 10:02 :18 EDT 2023 Body temperature 98.70 [degF] WedMay 30 10:0 2:18 EDT 2023 Respiratory rate 18.00 /min WedMay 30 10:0 2:18 EDT 2023 Systolic Blood Pressure 154.00 mm[Hg] WedMay 30 08:57:56 EDT 2023 Diastolic Blood Pressure 65.00 mm[Hg] WedMay 30 08:57:56 EDT 2023 Systolic Blood Pressure 154.00 mm[Hg] WedMay 29 23:52:06 EDT 2023 Diastolic Blood Pressure 64.00 mm[Hg] WedMay 29 23:52:06 EDT 2023 Heart Rate 81.00 /min WedMay 29 23:52 :06 EDT 2023 Body temperature 96.60 [degF] WedMay 29 23:5 2:06 EDT 4 Respiratory rate 18.00 /min WedMay 29 23:5 2:06 EDT 2023 Body weight 159.60 [lb_av] WedMay 29 12:56 :23 EDT 4 Systolic Blood Pressure 146.00 mm[Hg] WedMay 29 08:56:29 EDT 4 Diastolic Blood Pressure 73.00 mm[Hg] WedMay 29 08:56:29 EDT 2024 Systolic Blood Pressure 146.00 mm[Hg] WedMay 29 08:56:29 EDT 2024 Diastolic Blood Pressure 73.00 mm[Hg] WedMay 29 08:56:29 EDT 4 Heart Rate 66.00 /min WedMay 29 08:56 :29 EDT 4 Body temperature 98.40 [degF] WedMay 29 08:5 6:29 EDT 4 Respiratory rate 18.00 /min WedMay 29 08:5 6:29 EDT 4 Systolic Blood Pressure 156.00 mm[Hg] WedMay 29 00:01:27 EDT 2023 Diastolic Blood Pressure 67.00 mm[Hg] WedMay 29 00:01:27 EDT 4 Heart Rate 76.00 /min WedMay 29 00:01 :27 EDT 4 Body temperature 96.60 [degF] WedMay 29 00:0 1:27 EDT 2023 Respiratory rate 18.00 /min WedMay 29 00:0 1:27 EDT 4 Body weight 159.40 [lb_av] WedMay 28 09:16 :33 EDT 4 Systolic Blood Pressure 117.00 mm[Hg] WedMay 28 09:06:16 EDT 2023 Diastolic Blood Pressure 66.00 mm[Hg] WedMay 28 09:06:16 EDT 2023 Systolic Blood Pressure 117.00 mm[Hg] WedMay 28 09:06:16 EDT 2023 Diastolic Blood Pressure 66.00 mm[Hg] WedMay 28 09:06:16 EDT 2023 Heart Rate 62.00 /min WedMay 28 09:06 :16 EDT 2023 Body temperature 96.60 [degF] WedMay 28 09:0 6:16 EDT 2023 Respiratory rate 18.00 /min WedMay 28 09:0 6:16 EDT 2023 Systolic Blood Pressure 150.00 mm[Hg] [facility] May 27 23:08:52 EDT 2023 Diastolic Blood Pressure 73.00 mm[Hg] Sat May 27 23:08:52 EDT 2023 Heart Rate 74.00 /min WedMay 27 23:08 :52 EDT 2023 Body temperature 99.10 [degF] Sat May 27 23:0 8:52 EDT 2023 Respiratory rate 18.00 /min WedMay 27 23:0 8:52 EDT 2023 Body weight 160.60 [lb_av] WedMay 27 12:13 :25 EDT 2023 Systolic Blood Pressure 107.00 mm[Hg] Sat May 27 09:11:18 EDT 2023 Diastolic Blood Pressure 83.00 mm[Hg] WedMay 27 09:11:18 EDT 2023 Systolic Blood Pressure 107.00 mm[Hg] WedMay 27 08:44:56 EDT 2023 Diastolic Blood Pressure 83.00 mm[Hg] WedMay 27 08:44:56 EDT 2023 Heart Rate 68.00 /min WedMay 27 08:44 :56 EDT 2023 Body temperature 97.40 [degF] WedMay 27 08:4 4:56 EDT 2023 Respiratory rate 18.00 /min WedMay 27 08:4 4:56 EDT 2023 Systolic Blood Pressure 127.00 mm[Hg] WedMay 26 20:30:09 EDT 2023 Diastolic Blood Pressure 64.00 mm[Hg] WedMay 26 20:30:09 EDT 2023 Heart Rate 84.00 /min WedMay 26 20:30 :09 EDT 2023 Body temperature 98.40 [degF] WedMay 26 20:3 0:09 EDT 2023 Respiratory rate 20.00 /min WedMay 26 20:3 0:09 EDT 2023 Body weight 161.20 [lb_av] WedMay 26 14:19 :56 EDT 2023 Systolic Blood Pressure 166.00 mm[Hg] WedMay 26 09:05:01 EDT 2023 Diastolic Blood Pressure 61.00 mm[Hg] WedMay 26 09:05:01 EDT 2023 Systolic Blood Pressure 166.00 mm[Hg] WedMay 26 09:05:01 EDT 2023 Diastolic Blood Pressure 61.00 mm[Hg] WedMay 26 09:05:01 EDT 2023 Heart Rate 70.00 /min WedMay 26 09:05 :01 EDT 2023 Body temperature 97.20 [degF] WedMay 26 09:0 5:01 EDT 2023 Respiratory rate 22.00 /min WedMay 26 09:0 5:01 EDT 2023 Systolic Blood Pressure 148.00 mm[Hg] WedMay 25 17:26:24 EDT 2023 Diastolic Blood Pressure 63.00 mm[Hg] WedMay 25 17:26:24 EDT 2023 Heart Rate 73.00 /min WedMay 25 17:26 :24 EDT 2023 Body temperature 98.50 [degF] WedMay 25 17:2 6:24 EDT 2023 Respiratory rate 18.00 /min WedMay 25 17:2 6:24 EDT 2023 Systolic Blood Pressure 131.00 mm[Hg] WedMay 25 12:05:31 EDT 2023 Diastolic Blood Pressure 59.00 mm[Hg] WedMay 25 12:05:31 EDT 2023 Systolic Blood Pressure 170.00 mm[Hg] WedMay 25 10:12:12 EDT 2023 Diastolic Blood Pressure 69.00 mm[Hg] WedMay 25 10:12:12 EDT 2023 Heart Rate 70.00 /min WedMay 25 10:12 :12 EDT 2023 Body temperature 98.30 [degF] WedMay 25 10:1 2:12 EDT 2023 Respiratory rate 18.00 /min WedMay 25 10:1 2:12 EDT 2023 Body weight 160.00 [lb_av] WedMay 25 09:02 :03 EDT 2023 Systolic Blood Pressure 169.00 mm[Hg] WedMay 25 01:58:19 EDT 2023 Diastolic Blood Pressure 73.00 mm[Hg] WedMay 25 01:58:19 EDT 2023 Heart Rate 80.00 /min WedMay 25 01:58 :19 EDT 2023 Body temperature 98.60 [degF] WedMay 25 01:5 8:19 EDT 2023 Respiratory rate 18.00 /min WedMay 25 01:5 8:19 EDT 2023 Body weight 161.00 [lb_av] WedMay 24 14:21 :40 EDT 2023 Systolic Blood Pressure 156.00 mm[Hg] WedMay 24 08:48:16 EDT 2023 Diastolic Blood Pressure 77.00 mm[Hg] WedMay 24 08:48:16 EDT 2023 Heart Rate 75.00 /min WedMay 24 08:48 :16 EDT 2023 Body temperature 98.00 [degF] WedMay 24 08:4 8:16 EDT 2023 Respiratory rate 18.00 /min WedMay 24 08:4 8:16 EDT 2023 Systolic Blood Pressure 132.00 mm[Hg] WedMay 23 23:16:02 EDT 2023 Diastolic Blood Pressure 74.00 mm[Hg] WedMay 23 23:16:02 EDT 2023 Heart Rate 70.00 /min WedMay 23 23:16 :02 EDT 2023 Body temperature 98.10 [degF] WedMay 23 23:1 6:02 EDT 2023 Respiratory rate 20.00 /min WedMay 23 23:1 6:02 EDT 2023 Body weight 161.20 [lb_av] WedMay 23 09:53 :11 EDT 2023 Body Height 63.00 [in_i] WedMay 23 09:49 :35 EDT 2023 Systolic Blood Pressure 157.00 mm[Hg] WedMay 23 08:43:19 EDT 2023 Diastolic Blood Pressure 63.00 mm[Hg] WedMay 23 08:43:19 EDT 2023 Heart Rate 77.00 /min WedMay 23 08:43 :19 EDT 2023 Body temperature 96.90 [degF] WedMay 23 08:4 3:19 EDT 2023 Respiratory rate 20.00 /min WedMay 23 08:4 3:19 EDT 4 Systolic Blood Pressure 153.00 mm[Hg] WedMay 22 22:59:49 EDT 2023 Diastolic Blood Pressure 84.00 mm[Hg] WedMay 22 22:59:49 EDT 4 Heart Rate 76.00 /min WedMay 22 22:59 :49 EDT 2023 Body temperature 98.00 [degF] WedMay 22 22:5 9:49 EDT 2023 Respiratory rate 16.00 /min WedMay 22 22:5 9:49 EDT 2023 Systolic Blood Pressure 158.00 mm[Hg] WedMay 22 10:27:53 EDT 2023 Diastolic Blood Pressure 66.00 mm[Hg] WedMay 22 10:27:53 EDT 2023 Heart Rate 76.00 /min WedMay 22 10:27 :53 EDT 2023 Body temperature 98.30 [degF] WedMay 22 10:2 7:53 EDT 2023 Respiratory rate 18.00 /min WedMay 22 10:2 7:53 EDT 2023 Body weight 162.60 [lb_av] WedMay 22 10:04 :22 EDT 2023 Systolic Blood Pressure 159.00 mm[Hg] WedMay 21 16:27:44 EDT 2023 Diastolic Blood Pressure 68.00 mm[Hg] WedMay 21 16:27:44 EDT 2023 Heart Rate 77.00 /min WedMay 21 16:27 :44 EDT 2023 Body temperature 96.90 [degF] WedMay 21 16:2 7:44 EDT 2023 Respiratory rate 18.00 /min WedMay 21 16:2 7:44 EDT 2023 Reason for Referral Past Medical History Resolved Concerns * Problem Syncope and collapse* Code: * Start Date: WedMay 19 00:00:00 EDT 2023 * End Date: WedJun 05 00:00:00 EDT 2023 * Problem Contusion of scalp, subsequent encounter* Code: * Start Date: WedMay 19 00:00:00 EDT 2023 * End Date: WedJun 05 00:00:00 EDT 2023
--- OUTSIDE RECORDS SUMMARY | 2025-05-21 13:58 | XMS_ITS | Referral Summary ---
Author Organization [facility] Address [address] [place] [address] Care Team Providers Care Advisory Intern Name Role Phone Rasta Patterson DO Primary Care Provider [phone] Allergies Active Allergy Reactions Criticality Noted Date Comments Adhesive Rash Medium Adhesive Tape-Silicones Unknown 07/11/2020 Morphine Nausea only,Nausea A nd Vomiting Low Medications pravastatin (PRAVACHOL) 40 mg tablet Take 1 tablet (40 mg total) by mouth nightly 06/15/2018 Active cyclobenzaprine (FLEXERIL) 5 mg tablet Take 1 tablet (5 mg total) by mouth 3 (three) times a day as needed for muscle spasms 03/01/2024 Active gabapentin (NEURONTIN) 300 mg capsule Take 1 capsule (300 mg total) by mouth 2 (two) times a day 04/17/2024 Active sertraline (ZOLOFT) 50 mg tablet Take 1 tablet (50 mg total) by mouth daily 03/15/2024 Active lidocaine (ASPERCREME) 4 % adhesive patch,medicated Place 1 patch on the skin daily 05/19/2024 Active Active Problems Problem Noted Date Diagnosed Date Anxiety 05/16/2024 Assessment & Plan (05/16/2024 12:20 PM CDT): Continue home Sertraline 50 mg qday Stage 3b chronic kidney disease 05/16/2024 Assessment & Plan (05/16/2024 12:21 PM CDT): Baseline Cr 1.0-1.3 and within baseline on admit -Renally dose meds for CrCl ~30 Age-related physical debility 05/16/2024 Assessment & Plan (05/19/2024 9:16 AM CDT): Presented after fall/possible syncope -PT/OT evaluation & recommending SNF - will discharge to facility this AM Gait disturbance 07/11/2020 Impaired strength of lower extremity 07/11/2020 Intervertebral disc disorder with radiculopathy of lumbar region 07/11/2020 Assessment & Plan (05/19/2024 9:17 AM CDT): Chronic low back pain with neuropathy -Continue home Gabapentin 300 mg BID and PRN flexeril and PRN [place] -Added on Ibuprofen as first line per family request Cervical disc disorder with myelopathy 6 Hypertension 07/16/2014 Assessment & Plan (05/19/2024 9:16 AM CDT): Home regimen of Amlodipine 5 mg PO qday and Enalapril 20 mg BID -Hold antihypertensives given soft BP with concern for orthostasis -BP still within goal for her age off anti-hypertensives Resolved Problems Problem Noted Date Diagnosed Date Resolved Date Laceration of scalp, initial encounter 05/16/2024 05/19/2024 Assessment & Plan (05/16/2024 12:16 PM CDT): Secondary to fall vs syncope -GTS evaluated in ED and no surgical intervention needed -CT head/C-spine, CT T & L-spine and plain films all without fractures Syncope 05/16/2024 05/19/2024 Assessment & Plan (05/19/2024 9:18 AM CDT): Admitted with fall, complicated by laceration at the back of head. 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 Troponin negative x2 -S/p 1 L LR and holding home anti-hypertensive's -Orthostatic vital signs normal after volume resuscitation -TTE with normal EF 58%, normal diastolic function, and PASP 35 + RA pressure -CT and plain films all without acute fracture and only noted left posterior scalp hematoma without acute intracranial bleeding -No events on telemetry - now off -PT/OT recommending SNF placement - medically ready for discharge and will go to her facility today Hyperkalemia 05/16/2024 05/19/2024 Assessment & Plan (05/18/2024 10:16 AM CDT): Now resolved, mild on presentation with peak of 5.3 On supplemental oxygen therapy 05/16/2024 05/19/2024 Assessment & Plan (05/18/2024 10:18 AM CDT): Placed on 2 L NC for desated to 88% on room air while sleeping. Presumed secondary to sedation from pain meds and possible PERNELL component. She denies any SOB or cough and does not wear oxygen at baseline -CXR & CT scan without edema, consolidation, or effusion -D-dimer only mildly elevated for her age -Cont aggressive pulm hygiene with incentive spirometer and out of bed to chair TID -Oxygen now weaned off Social History Tobacco Use Types Packs/Day Years Used Date Smoking Tobacco: Former Smokeless Tobacco: Never Tobacco Cessation:Counseling Given: Not Answered Alcohol Use Standard Drinks/Week Comments Never 0 (1 standard drink = 0.6 oz pur e alcohol) Personal Safety Answer Date Recorded Have you ever been in or are you currently in a harmful physical or emotional relationship or is someone making you feel afraid or unsafe? Denies 05/16/2024 Comments Unknown Sex and Gender Information Value Date Recorded Sex Assigned at Not on file Legal Sex Female 3:21 AM MOP MAN Gender Identity Female 10/30/2023 4:33 PM MOP MAN Sexual Orientation Not on file Last Filed Vital Signs Vital Sign Reading Time Taken Comments Blood Pressure 149/53 05/19/2024 7:51 AM CDT Pulse 71 05/19/2024 7:51 AM CDT Temperature 36.7 C (98.1 F) 05/19/2024 7:51 AM CDT Respiratory Rate 18 05/19/2024 7:51 AM CDT Oxygen Saturation 98% 05/19/2024 7:51 AM CDT Inhaled Oxygen Concentration - - Weight 72.6 kg (160 lb) 05/19/2024 4:41 AM CDT Height 160 cm (5' 2.99) 05/16/2024 10:30 PM CDT Body Mass Index 28.35 05/16/2024 10:30 PM CDT Plan of Treatment Not on file Medical Devices Implanted Type Area Technical Support Internship Device Identifier Shelf Expiration Date Model / Serial / Lot Hardware Spine Cervical Insurance MEDICARE [facility] MEDICARE [facility] MEDICARE [facility] Advance Directives For more information, please contact: [phone] * LIMITED - No CPR (Latest Code Status on File) Date Activated Date Inactivated Comments 05/16/2024 5:22 AM 05/19/2024 2:29 PM Question Answer Comments Provide aggressive medical m anagement before a full cardiopulmonary arrest occurs. Use antibiotics, IV Fluids, and medical treatment unless specifically selected below: No intubationNo non-invasive ventilationNo cardioversionNo internal / external pacemaker * Full Code Date Activated Date Inactivated Comments 05/16/2024 4:38 AM 05/16/2024 5:22 AM Care Teams Advisory Intern Relationship Specialty Start Date End Date Rasta Patterson DO PCP - General 12/04/15
--- OUTSIDE RECORDS SUMMARY | 2025-05-21 13:58 | XMS_ITS | Clinical Summary ---
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.] on file Legal Sex Female 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 Gender Identity Female 10/30/2023 4:33 PM BUSINESS INVESTOR Sexual Orientation Not on file Obstetrics History Last Filed Vital Signs Vital Sign Reading [...] 05/16/2024 10:30 PM CDT Plan of Treatment Health Maintenance Due Date Last Done Comments Depression Screening 1936 Osteoporosis Screening-Bone Density Scan 1936 DTaP/Tdap/Td Vaccine (1 - Tdap) 1947 Hepatitis B Screening 1954 Well Visit 65+ 2001 Zoster Vaccine (2 of 3) 10/13/2015 08/18/2015 Pneumococcal vaccine 65+ (2 of 2 - PPSV23) 09/10/2017 09/10/2016 Covid-19 Vaccine (5 - 2023-2 5 season) 2024 08/18/2022, 09/18/2021, 02/13/2021, Additional history exists Fall Risk Assessment 05/19/2025 05/19/2024 Influenza Vaccine (Season Ended) 2025 08/28/2022, 09/02/2021, 09/05/2020, Additional history exists Medical Devices Implanted Type Area [place] Device Identifier Shelf Expiration Date Model / Serial / Lot Hardware Spine Cervical Insurance MEDICARE [facility] MEDICARE [facility] MEDICARE [employer] [place] Advance Directives For more information, please contact: [phone] * LIMITED - No CPR (Latest Code [...] 4:38 AM 05/16/2024 5:22 AM Care Teams Candle Molder Hand Relationship Specialty Start Date End Date Rasta Patterson DO PCP - General 12/04/15
--- OUTSIDE RECORDS SUMMARY | 2025-05-21 13:58 | XMS_ITS | Clinical Summary ---
Author Organization [facility] Address [address] [place] [address] Care Team Providers Care Brewery Representative Name Role Phone MagalisnolanRasta pat Primary Care Provider Allergies No known active allergies Medications cyclobenzaprine (FLEXERIL) 5 mg Tablet Take 5 mg by mouth 2 times daily. 03/01/2024 Active gabapentin (NEURONTIN) 300 mg capsule Take 300 mg by mouth 2 times daily. 04/17/2024 Active amLODIPine (NORVASC) 5 mg tablet Take 5 mg by mouth daily. Active pravastatin (PRAVACHOL) 40 mg tablet Take 40 mg by mouth daily. 08/28/2024 Active sertraline (ZOLOFT) 50 mg tablet Take 50 mg by mouth daily. 03/15/2024 Active lidocaine (lidocaine viscous 2%) 2 % Solution 5 mL by Mouth/Throat route every 4 hours as needed for Pain. Mix with a few oz of liquid and swallow to coat throat. 200 mL 3 12/12/2024 Active sucralfate (Carafate) 100 mg/mL suspension Take 10 mL (1 Gram) by mouth 3 times daily. 400 mL 3 12/12/2024 Active Active Problems No known active problems Encounters Date Type Department Care Team Description 05/14/2025 Orders Only [facility] H[facility] - [place] [address] [place] [address] Brady Villanueva MD 05/09/2025 External Device Data STL ABSTRACTION Provider, Abstract 05/08/2025 External Device Data STL ABSTRACTION Provider, Abstract 04/12/2025 External Device Data STL ABSTRACTION Provider, Abstract 04/11/2025 External Device Data STL ABSTRACTION Provider, Abstract 04/10/2025 External Device Data STL ABSTRACTION Provider, Abstract from Last 3 Months Family History Medical History Relation Name Comments Cancer Brother 1 Cancer Brother 2 Heart Disease Child 1 Cancer Child 2 No Known Problems Child 3 No Known Problems Child 4 Heart Disease Father Cancer Mother Heart Disease Mother Cancer Sister 1 Heart Disease Sister 1 Cancer Sister 2 Heart Disease Sister 2 Cancer Sister 3 Relation Name Status Comments Brother 1 Brother 2 Alive Child 1 Alive Child 2 Alive Child 3 Alive Child 4 Alive Father Mother Sister 1 Alive Sister 2 Sister 3 Social History Tobacco Use Types Packs/Day Years Used Date Smoking Tobacco: Never Smokeless Tobacco: Never Tobacco Cessation:Counseling Given: Not Answered Alcohol Use Standard Drinks/Week Comments Never 0 (1 standard drink = 0.6 oz pur e alcohol) Comments Unknown Sex and Gender Information Value Date Recorded Sex Assigned at Not on file 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 Gender Identity Not on file Sexual Orientation Not on file Last Filed Vital Signs Vital Sign Reading Time Taken Comments Blood Pressure 136/69 02/12/2025 9:55 AM CDT Pulse 84 02/12/2025 9:55 AM CDT Temperature 37.1 C (98.8 F) 02/12/2025 9:55 AM CDT Respiratory Rate 15 02/12/2025 9:55 AM CDT Oxygen Saturation 95% 02/12/2025 9:55 AM CDT Inhaled Oxygen Concentration - - Weight 68.3 kg (150 lb 9.6 oz) 02/12/2025 9:55 A M CDT Height 157.5 cm (5' 2) 11/13/2024 11:44 AM CRAWLER TRACTOR OPERATOR Body Mass Index 27.55 11/13/2024 11:44 AM CRAWLER TRACTOR OPERATOR Plan of Treatment Upcoming Encounters Date Type Department Care Team (Late st Contact Info) Description 05/21/2025 2:15 PM CDT Office Visit [facility] - [place] [address] [facility] [place] [address] Brady Villanueva MD [address] [place] [address] Arrived Health Maintenance Due Date Last Done Comments DTAP/TDAP/TD VACCINES (1 - Tdap) 1955 PNEUMOCOCCAL VACCINE 50+ YEARS (1 of 1 - PCV) 10/31/19 86 ZOSTER VACCINE (1 of 2) 1986 OSTEOPOROSIS SCREENING 2001 RSV VACCINE (60+ or ) (1 - 1-dose 75+ series) 2011 INFLUENZA VACCINE (#1) 2024 Procedures Procedure Name Priority Date/Time Associated Diagnosis Comments CT SOFT TISSUE NECK W CONTRAST Routine 05/14/2025 2:08 PM CDT from Last 3 Months Results * CT SOFT TISSUE NECK W CONTRAST (05/14/2025 2:08 PM CDT) Anatomical Region Laterality Modality Neck Computed Tomogra phy Brady Villanueva MD CT ORDERABLES Final Result from Last 3 Months Insurance MEDICARE PART A AND B [facility] Care Teams Brewery Representative Relationship Specialty Start Date End Date Rasta Patterson DO [address] [address] PCP - General Internal Medicine 12/01/24
--- OUTSIDE RECORDS SUMMARY | 2025-05-21 13:59 | XMS_ITS ---
Author Name Auto Generated, Auto Generated Organization [facility] Address [address] [place] [address] Phone [phone] Care Team Providers Care Body Painter Name Role Phone Paco Donnelly Unavailable Romeo Ying Unavailable Functional Status No Results Mental Status No Results Allergies and Intolerances Name Onset Date Reaction Severity adhesive (Allergy) WedMay 19 13:31:00 EDT 2023 morphine (Allergy) WedMay 19 13:30:00 EDT 2023 Encounters Program Name Primary Diagnosis Admission Date/Time Dis charge Date/Time [facility] Care Facility [facility] WedMay 19 07:30:00 EDT [...] 2023 * End Date: * Text: * long term care social worker (current) use of opiate analgesic* Code: * [...] EDT 2023 Systolic Blood Pressure 150.00 mm[Hg] [facility] May 27 23:08:52 EDT 2023 [...]
--- OUTSIDE RECORDS SUMMARY | 2025-05-21 13:59 | XMS_ITS | Data Portability ---
Author Organization [facility] Address [address] [place] [address] Care Team Providers Care Chef De Froid Name Role Phone SYMONE THOMAS Primary Care Provider [phone] SYMONE THOMAS Referring Provider [phone] Assessment Encounter Date Assessment Date Assessment LastModified by Organization Details LastModified Time 10/13/2023 10/13/2023 HPI: 87-year-old female came in today for evaluation of her right knee pain. She has been having some symptoms in the knee pain and swelling for over the last month. Her symptoms are ready started when she had family members in a hospital. She was going to the hospital every day and was doing an extensive amount of walking. Fortunately this aggravated the problem further. She recently saw her primary care doctor and was started on a Medrol Dosepak. She has 1 more day of this left. She is not taking any hgos-sim-zcaflud anti-inflammatori es. She states she has had a couple episodes in the past pain in this knee but typically resolved on their own. Most the pain she feels is in the medial and posterior medial aspect of the knee. Physical exam: 87-year-old female alert pleasant. She has mild effusion in the right knee. Range of motion is from 0-135 degrees. She has moderate tenderness over the medial joint line palpation and moderate patellofemoral grind. Minimal tenderness over the lateral joint line. Hip range motion is full without discomfort. No swelling in either lower extremity. After ChloraPrep was used on skin 20 mg Kenalog and 3 cc of 0.5% ropivacaine was injected into the right knee. Prior to the injection I did aspirate into the syringe and there was straw-colored fluid that was aspirated. I did this to determine whether not this was an effusion or hemarthrosis. Obviously was not a heme arthrosis. 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 The Medrol Dosepak has been helping some but she still is complaining of pain in the knee. She asked about injection in the knee and I think that would be reasonable. She tolerated the injection well. These can be repeated as often as every 3 months and she will keep this in mind. Her daughter was with her today as well. I will see her back as needed. 30 minutes was spent in treatment patient more than half of this in hdkr-fn-lznf [facility] Not available 10/13/2023 16:40:40 Plan of Treatment Reminders Order Date Submit Date Provider Last Modified By Organization Details Last Modified Time Details Appointments None recorded. Lab None recorded. Referral None recorded. Procedures injection/a spiration joint/bursa (PROC) - in office procedure, administere d by provider 2022 023 In-Office Order, Internal Use Only DO Not Attach Compendium DO Not Attach Compendium, Do Not Delete/merge, [id number] 15:55:44 Surgeries None recorded. Imaging XR, knee, 3 view 2022 023 [email or web address] [facility] [place], [address], [place], [address], 16:41:33 Medication Orders Kenalog 10 mg/mL suspension for injection 2022 023 [email or web address] [id number], [address], [place], [place], [id number], 16:32:12 ropivacaine (PF) 5 mg/mL (0.5 %) injection solution 2022 023 [email or web address] Not available 09:39:04 Patient TargetsNo targets recorded. Patient InstructionsNo instructions recorded. Reason for Referral None Reported. Results Created Date Observation Date Name Description Value Unit Range Abnormal Flag Note LastModifiedBy Organization Detail LastModifiedTime 10/13/20 23 XR, knee, 3 view No observ ation record ed. [email or web address] [facility] [place] [address], [place], [address], 10/13/2023 16:36:26 Result Notes None recorded. Problems Name Problem SNOMED Code Status Onset Date Resolution Date Notes Provider Name and Address Organization Details Recorded Time Pain of right knee joint 176469009105501 Active 2022 Gini Levy RMStefanie [facility], [place] - [facility] 15:32:56 Problem Notes None recorded. Procedures Surgical History Date Name Laterality Status Provider Name and Address Organization Details Recorded Time Neck completed Gini Levy RMA [place] - [facility] 10/13/2023 15:31:22 Gallbladder Surgery completed Gini Levy RMA [facility] 10/13/2023 15:31:29 Hysterectomy completed Giniguillaume Levy Stefanie [facility] 10/13/2023 15:31:35 Imaging Results None recorded. Procedure Notes None recorded. Medical Equipment None Reported. Allergies No known drug allergies Medications Name Sig Start Date Stop Date Status Note LastModified by Organization Details LastModified Time cyclobenzaprine 10 mg tablet active Not Available Not Available Not Available pravastatin 40 mg tablet active Not Available Not Available No t Available benzonatate 200 mg capsule active Not Available Not Available N ot Available hydrocodone 5 mg-acetaminophen 325 mg tablet active Not Available Not Availabl e Not Available enalapril maleate 20 mg tablet active Not Available Not Available Not Available ondansetron HCl 4 mg tablet active Not Available Not Available Not Available prednisone 5 mg tablet active Not Available Not Available Not Available amlodipine 5 mg tablet active Not Available Not Available Not Available Kenalog 10 mg/mL suspension for injection in office 2022 active [facility]: 0003- [id number]- [id number] Not Available Not Available Not Available nystatin 100,000 unit/gram topical cream active Not Available Not Availabl e Not Available gabapentin 300 mg capsule active Not Available Not Available N ot Available methylprednisolo ne 4 mg tablets in a dose pack active Not Available Not Availab le Not Available sertraline 50 mg tablet active Not Available Not Available Not Available cyclobenzaprine 5 mg tablet active Not Available Not Available Not Available ropivacaine (PF) 5 mg/mL (0.5 %) injection solution in office 2022 active Not Available Not Available Not Avai lable Vitals Date Recorded Body height Body mass index (BMI) Body weight Provider Name and Address Organization Details Last Updated DateTime 10/13/2023 157.48 cm 29.4 kg/m2 74217.37 g Gini Cam [place] [facility] 10/13/2023 15:39:02 Social History None recorded. Functional Status Question Answer Note LastModified by Organization D etails LastModified Time What is your level of alcohol consumption? None [email or web address] Information not available 10/13/2023 Mental Status None recorded. Family History Relationship Description Onset Age of this Age Resolved Age Notes LastModified by Organization Details LastModified Time Mother Hypertensive disorder [email or web address] Not available 2022 15:30:59 Medical History Condition Response ARTHRITIS Y CANCER: SPECIFY Y OSTEOPOROSIS Y Gynecological HistoryNo gynecological history recorded. Obstetrics History GPAL:G 0 P 0 0 0 0 Past Encounters Encounter ID Performer Location Encounter Start Date Encounter Closed Date Diagnosis/Indication Diagnosis SNOMED-CT Code Diagnosis ICD10 Code Diagnosis Note [id number] Brent Prado MD [facility] [address] [place] [address] 10/13/2023 15:11:06 10/13/2023 16:41:32 Pain of right knee joint [id number] 58733 M25.561 Health Concerns Section Related Observation LastModified by Organization Detai ls LastModified Time None Recorded Concern Status LastModified by Organization Details LastModified Time None Recorded Advance Directives Directive None Recorded Payers Insurance Date Sequence Insurance Name Policy Number Policy Mcbride Covered Member ID Mcbride Member ID Guarantor Name 10/13/2023 1 [place] Adriana M Kris [id number] Adriana Kris 10/21/2023 2 [place] [id number] M [facility] [id number] Adriana Kris OBGyn Episode No OBEpisode recorded.
[2025-05-21 16:24] LABS: Alanine Aminotransferase 16 U/L (6-35); Albumin Level 4.3 g/dL (3.5-5.1); Alkaline Phosphatase 73 U/L (38-126); Anion Gap 12 mmol/L (4-12); Aspartate Amino Transferase 51 U/L (14-36); Bilirubin,Total 0.4 mg/dL (0.2-1.3); Blood Urea Nitrogen 17 mg/dL (7-17); Calcium 9.6 mg/dL (8.4-10.2); Carbon Dioxide 25 mmol/L (22-30); Chloride 102 mmol/L (98-107); Estimated Glomerular Filt Rate 42; Glucose 136 mg/dL (65-110); Potassium 4.1 mmol/L (3.4-5.0); Sodium 139 mmol/L (137-145); Total Protein 8.5 g/dL (6.3-8.2)
== END 2025-05-21 13:40 | disposition home or self-care (01) ==
PROVIDERS: PCP Internal Medicine; Visit Provider Internal Medicine Hematology & Oncology
DX: C32.9 Malignant neoplasm of larynx, unspecified (principal)
CPT/HCPCS: 36415; 80047; 80053; 85025

== ENCOUNTER 2025-08-16 14:36 | Outpatient (CLI) | payer MEDICARE, SELFPAY ==
[2025-08-16 15:22] LABS: Hematocrit 41.0 % (37.0-47.0); Hemoglobin 12.5 g/dL (12.0-15.0); Immature Granulocyte Percent A 0.3 % (0-0.5); Lymphocytes Absolute Auto 1.38 K/mm3 (0.9-3.2); Mean Corpuscular HGB Conc 30.5 g/dl (32-36); Mean Corpuscular Hemoglobin 28.3 pg (26-34); Mean Corpuscular Volume 93.0 fl (80-100); Nucleated Red Blood Cells Absolute Auto 0.000 K/mm3 (0.0-0.012); Nucleated Red Blood Cells Perc 0.0 % (0.0-0.2); Platelet Count Result 295 k/mm3 (150-375); Red Blood Count 4.41 M/mm3 (4.2-5.4); White Blood Count 5.9 K/mm3 (4.5-10.0)
[2025-08-16 15:37] LABS: Alanine Aminotransferase 15 U/L (6-35); Albumin Level 4.3 g/dL (3.5-5.1); Alkaline Phosphatase 68 U/L (38-126); Anion Gap 8 mmol/L (4-12); Aspartate Amino Transferase 29 U/L (14-36); Bilirubin,Total 0.4 mg/dL (0.2-1.3); Blood Urea Nitrogen 14 mg/dL (7-17); Calcium 9.5 mg/dL (8.4-10.2); Carbon Dioxide 29 mmol/L (22-30); Chloride 102 mmol/L (98-107); Estimated Glomerular Filt Rate 40; Glucose 137 mg/dL (65-110); Potassium 4.3 mmol/L (3.4-5.0); Sodium 139 mmol/L (137-145); Total Protein 8.2 g/dL (6.3-8.2)
--- OUTSIDE RECORDS SUMMARY | 2025-08-16 17:14 | XMS_ITS | Data Portability ---
Author Organization [facility] Main Office Address [address] [place] [address] Care Team Providers Care Board Certified Orthodontist Name Role Phone SYMONE THOMAS Primary Care Provider SYMONE THOMAS Referring Provider Assessment Encounter Date Assessment Date Assessment LastModified [...] this left. She is not taking any mlkv-jkj-bcqsoes anti-inflammatori es. She states she has had [...] patient more than half of this in [email or web address] Not available 10/13/2023 16:40:40 Plan of Treatment Reminders Order Date Submit Date Provider Last Modified By Organization Details Last Modified Time Details Appointments None recorded. Lab None recorded. Referral None recorded. Procedures injection/a spiration joint/bursa (PROC) - in office procedure, administere d by provider 2022 023 [email or web address] In-Office Order, Internal Use Only DO Not Attach Compendium DO Not Attach Compendium, Do Not Delete/merge, [id number] 15:55:44 Surgeries None recorded. Imaging XR, knee, 3 view 2022 023 [email or web address] [facility] [place], [address], [place], [address], 16:41:33 Medication Orders Kenalog 10 mg/mL suspension for injection 2022 023 [email or web address] [id number], [address] [place], [place], [id number], 16:32:12 ropivacaine (PF) 5 mg/mL (0.5 %) injection solution 2022 023 [email or web address] Not available 09:39:04 Patient TargetsNo targets recorded. Patient InstructionsNo instructions recorded. Reason for Referral None Reported. Results Created Date Observation Date Name Description Value Unit Range Abnormal Flag Note LastModifiedBy Organization Detail LastModifiedTime 10/13/20 23 XR, knee, 3 view No observ ation record ed. [email or web address] [facility] [place] [address], [place], [address], 10/13/2023 16:36:26 Result Notes None recorded. Problems Name Problem SNOMED Code Status Onset Date Resolution Date Notes Provider Name and Address Organization Details Recorded Time Pain of right knee joint 774067642226476 Active 2022 Gini Levy RMStefanie [facility], [place] [facility] 15:32:56 Problem Notes None recorded. Procedures Surgical History Date Name Laterality Status Provider Name and Address Organization Details Recorded Time Neck completed Gini Levy RMA [place] - [facility] 10/13/2023 15:31:22 Gallbladder Surgery completed Gini Levy RMA [facility] 10/13/2023 15:31:29 Hysterectomy completed Giniguillaume Levy Stefanie [facility] 10/13/2023 15:31:35 Imaging Results None recorded. Procedure [...] suspension for injection in office 2022 active [facility]: 0003- [phone]- [phone] Not Available Not [...] Updated DateTime 10/13/2023 157.48 cm 29.4 kg/m2 01446.37 g Gini Cam [place] [facility] [place] [facility] 10/13/2023 15:39:02 Social History None recorded. Functional Status Question Answer Note LastModified by Organization D etails LastModified Time What is your level of alcohol consumption? None [email or web address] Information not available 10/13/2023 Mental Status None recorded. Family History Relationship Description Onset Age of this Age Resolved Age Notes LastModified by Organization Details LastModified Time Mother Hypertensive disorder [email or web address] Not available 2022 15:30:59 Medical History Condition Response OSTEOPOROSIS Y ARTHRITIS Y CANCER: SPECIFY Y Gynecological HistoryNo gynecological history recorded. Obstetrics History GPAL:G 0 P 0 0 0 0 Past Encounters Encounter ID Performer Location Encounter Start Date Encounter Closed Date Diagnosis/Indication Diagnosis SNOMED-CT Code Diagnosis ICD10 Code Diagnosis IMO Codes Diagnosis Note [id number] Brent Prado MD [facility] [place] [address] [place] [address] 10/13/2023 15:11:06 10/13/2023 16:41:32 Pain of right knee joint [id number] 36354 M25.561 Health Concerns Section Related Observation LastModified by Organization Detai ls LastModified Time None Recorded Concern Status LastModified by Organization Details LastModified Time None Recorded Advance Directives Directive None Recorded Payers Insurance Date Sequence Insurance Name Policy Number Policy Mcbride Covered Member ID Mcbride Member ID Guarantor Name 10/13/2023 1 [place] Adriana M Kris [id number] Adriana Kris 10/21/2023 2 [place] [id number] M [facility] [id number] Adriana Kris OBGyn Episode No OBEpisode recorded.
--- OUTSIDE RECORDS SUMMARY | 2025-08-16 17:14 | XMS_ITS | Clinical Summary ---
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 -EKG with TWI V4-V6, but these [...] on file Legal Sex Female 3:21 AM TRAINING AND DOCUMENTATION SPECIALIST Gender Identity Female 10/30/2023 4:33 PM TRAINING AND DOCUMENTATION SPECIALIST Sexual Orientation Not on file Obstetrics History [...] Pneumococcal vaccine 65+ (2 of 2 - PCV20 or PCV21) 09/10/2017 09/10/2016 Fall Risk Assessment 05/19/2025 05/19/2024 Covid-19 Vaccine (5 - 2024-2 6 season) 2025 08/18/2022, 09/18/2021, 02/13/2021, Additional history exists Influenza Vaccine (#1) 2025 , 09/02/2021, 09/05/2020, Additional history exists Medical Devices Implanted Type Area Business Management Associate Device Identifier Shelf Expiration Date Model / Serial / Lot Hardware Spine Cervical Insurance MEDICARE COUNT INCLUDES THE [facility] MEDICARE COUNT INCLUDES THE [facility] MEDICARE [facility] [place] Advance Directives For more information, please contact: [phone] * LIMITED - No CPR (Latest Code [...] 4:38 AM 05/16/2024 5:22 AM Care Teams Rug Cleaner Helper Relationship Specialty Start Date End Date Rasta Patterson DO PCP - General 12/04/15
--- OUTSIDE RECORDS SUMMARY | 2025-08-16 17:14 | XMS_ITS | Clinical Summary ---
Author Organization [facility] Trisha roman [facility] Address [address] [address] Care Team Providers Care Grain Wafer Machine Operator Name Role Phone MagalisnolanRasta pat Primary Care [...] Encounters Date Type Department Care Team Description 07/24/2025 External Device Data [facility] ABSTRACTION Provider, Abstract 07/10/2025 External Device Data [facility] ABSTRACTION Provider, Abstract 06/27/2025 External Device Data [facility] ABSTRACTION Provider, Abstract 06/06/2025 External Device Data [facility] ABSTRACTION Provider, Abstract 06/06/2025 External Device Data [facility] ABSTRACTION Provider, Abstract 06/05/2025 External Device Data [facility] ABSTRACTION Provider, Abstract 05/23/2025 Orders Only [facility] Oncology [facility] Hematology - [place] [address] [place] [address] Brady Villanueva MD 05/21/2025 2:15 PM CDT Office Visit [facility]ology - [place] [address] [place] [address] Brady Villanueva MD 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) from Last 3 Months Family History Medical [...] on file Legal Sex Female 11:53 AM WOOD GLUER Gender Identity Not on file Sexual Orientation Not on file Last Filed Vital Signs Vital Sign Reading Time Taken Comments Blood Pressure 128/59 05/21/2025 2:01 PM CDT Pulse 77 05/21/2025 2:01 PM CDT Temperature 36.9 C (98.4 F) 05/21/2025 2:01 PM CDT Respiratory Rate 15 05/21/2025 2:01 PM CDT Oxygen Saturation 91% 05/21/2025 2:01 PM CDT Inhaled Oxygen Concentration - - Weight 72.2 kg (159 lb 3.2 oz) 05/21/2025 2:01 P M CDT Height 157.5 cm (5' 2) 11/13/2024 11:44 AM WOOD GLUER Body Mass Index 29.12 11/13/2024 11:44 AM WOOD GLUER Plan of Treatment Upcoming Encounters Date Type Department Care Team (Late st Contact Info) Description 08/29/2025 2:45 PM CDT Office Visit [facility] Oncology and Hematology - [place] [address] [facility] [address] [place] [address] Brady Villanueva MD [address] [address] [facility] [address] [place] [address] Health Maintenance Due Date Last Done Comments DTAP/TDAP/TD VACCINES (1 - Tdap) 1954 Traditional Medicare (ACO) Annual Wellness Visit 10/31 PNEUMOCOCCAL VACCINE 50+ YEARS (1 of 1 - PCV) 10/31/19 86 ZOSTER VACCINE (1 of 2) 1986 OSTEOPOROSIS SCREENING 2001 RSV VACCINE (60+ or ) (1 - 1-dose 75+ series) 2011 INFLUENZA VACCINE (#1) 2025 Procedures Procedure Name Priority Date/Time Associated Diagnosis Comments COMPREHENSIVE METABOLIC PANEL Routine 05/21/2025 10:15 AM CDT BASIC METABOLIC PANEL Routine 05/21/2025 10:12 AM CDT CBC WITH DIFFERENTIAL Routine 05/21/2025 10:11 AM CDT from Last 3 Months Results * COMPREHENSIVE METABOLIC PANEL (05/21/2025 10:15 AM CDT) Blood Brady Villanueva MD CHEMISTRY ORDERABLES Final Resu lt * BASIC METABOLIC PANEL (05/21/2025 10:12 AM CDT) Blood us Brady Villanueva MD CHEMISTRY ORDERABLES Final Resu lt * CBC WITH DIFFERENTIAL (05/21/2025 10:11 AM CDT) Blood Brady Villanueva MD HEMATOLOGY ORDERABLES Final Res ult from Last 3 Months Insurance MEDICARE PART A AND B [facility] Care Teams Grain Wafer Machine Operator Relationship Specialty Start Date End Date Rasta Patterson DO [address] [phone] PCP - General Internal Medicine 12/01/24
== END 2025-08-16 14:37 | disposition home or self-care (01) ==
PROVIDERS: PCP Internal Medicine; Visit Provider Internal Medicine Hematology & Oncology
DX: C32.9 Malignant neoplasm of larynx, unspecified (principal); I10 Essential (primary) hypertension
CPT/HCPCS: 36415; 80053; 85025

== ENCOUNTER 2025-08-22 08:26 | Outpatient (CLI) | payer MEDICARE, SELFPAY ==
--- NOTE | ~2025-08-22 | CT_ITS ---
EXAMINATION: CT soft tissue neck chest w DATE: 08/22/2025 09:03 INDICATION: Squamous cell carcinoma of larynx. TECHNIQUE: Computed tomography (CT) of the neck and chest was performed with 75 mL Omnipaque 350 intravenous contrast. Automated exposure control and iterative reconstruction technique were employed. The dose-length product was 704.53 mGy-cm. COMPARISON: Neck CT 05/14/2025 FINDINGS: CT NECK: There are likely changes of ocular lens replacement surgeries. There are nodules in the thyroid measuring up to 7 mm, likely not clinically significant. There are no pathologically enlarged lymph nodes. There is plaque in the proximal internal carotid arteries with less than 50% stenosis relative to normal distal artery lumen diameters. There is severe cervical spondylosis. There are changes of laminectomies with instrumentation from C4 to C6. There are changes of anterior fusion procedure at C5-C6. CT CHEST: There is mild emphysema. There is mild atelectasis bilaterally. There is scarring in paraspinal right lower lobe. Calcified left lung nodules and calcified left hilar lymph nodes are consistent with old granulomatous disease. No pleural effusion. The heart size is normal. No pericardial effusion. There are cysts in the liver measuring up to 14 mm. There are changes of cholecystectomy. There are bridging endplate osteophytes at multiple levels in the spine, consistent with diffuse idiopathic skeletal hyperostosis (DISH). IMPRESSION: 1. No evidence of metastatic disease. Reviewed, dictated and finalized at location E.
--- OUTSIDE RECORDS SUMMARY | 2025-08-22 08:41 | XMS_ITS | Clinical Summary ---
Author Organization [facility]an [facility] Address [address] [place] [address] Care Team Providers Care Loom Operator Apprentice Name Role Phone MagalisnolanRasta pat Primary Care [...] Encounters Date Type Department Care Team Description 08/17/[address] [facility] Oncology and Hematology - [place] [address] [place] [address] Brady Villanueva MD 07/24/2025 External Device Data [facility] ABSTRACTION Provider, Abstract 07/10/2025 External Device Data [facility] ABSTRACTION Provider, Abstract 06/27/2025 External Device Data [facility] ABSTRACTION Provider, Abstract 06/06/2025 External Device Data [facility] ABSTRACTION Provider, Abstract 06/06/2025 External Device Data ST[facility] ABSTRACTION Provider, Abstract 06/05/2025 External Device Data STL ABSTRACTION Provider, Abstract 05/23/[address] [facility] Oncology and Hematology - [place] [address] [place] [address] Brady Villanueva MD from Last 3 Months Family History Medical [...] on file Legal Sex Female 11:53 AM SHIP CAPTAIN Gender Identity Not on file Sexual Orientation [...] 157.5 cm (5' 2) 11/13/2024 11:44 AM SHIP CAPTAIN Body Mass Index 29.12 11/13/2024 11:44 AM SHIP CAPTAIN Plan of Treatment Upcoming Encounters Date Type Department Care Team (Late st Contact Info) Description 08/29/2025 2:45 PM CDT Office Visit [facility] Oncology and Hematology - [place] [address] [place] [address] Brady Villanueva MD [address] [facility] [address] [place] [address] Health Maintenance Due Date Last Done Comments DTAP/TDAP/TD VACCINES (1 - Tdap) 1954 PNEUMOCOCCAL VACCINE 50+ YEARS (1 of 1 - PCV) 10/31/19 86 ZOSTER VACCINE (1 of 2) 1986 OSTEOPOROSIS SCREENING 2001 RSV VACCINE (60+ or ) (1 - 1-dose 75+ series) 2011 INFLUENZA VACCINE (#1) 2025 Procedures Procedure Name Priority Date/Time Associated Diagnosis Comments COMPREHENSIVE METABOLIC PANEL Routine 08/16/2025 11:14 AM CDT from Last 3 Months Results * COMPREHENSIVE METABOLIC PANEL (08/16/2025 11:14 AM CDT) Blood us Brady Villanueva MD CHEMISTRY ORDERABLES Final Resu lt from Last 3 Months Insurance MEDICARE PART A AND B [facility] TRADITIONAL Care Teams Loom Operator Apprentice Relationship Specialty Start Date End Date Rasta Patterson DO [address] [address] PCP - General Internal Medicine 12/01/24
--- OUTSIDE RECORDS SUMMARY | 2025-08-22 08:41 | XMS_ITS | Clinical Summary ---
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 -EKG with TWI V4-V6, but these [...] on file Legal Sex Female 3:21 AM ACCESS CONSULTANT Gender Identity Female 10/30/2023 4:33 PM ACCESS CONSULTANT Sexual Orientation Not on file Obstetrics History [...] history exists Medical Devices Implanted Type Area Instructor Extension Work Device Identifier Shelf Expiration Date Model / Serial / Lot Hardware Spine Cervical Insurance MEDICARE [facility] MEDICARE [facility] MEDICARE [facility] [place] Advance Directives For more information, please contact: [phone] * LIMITED - No CPR (Latest Code [...] 4:38 AM 05/16/2024 5:22 AM Care Teams Financial Associate Relationship Specialty Start Date End Date Rasta Patterson DO PCP - General 12/04/15
--- OUTSIDE RECORDS SUMMARY | 2025-08-22 08:41 | XMS_ITS | Encounter Summary ---
Author Organization [facility] [employer] [facility] Address [address] [place] [address] Care Team Providers Care Customer Expert Name Role Phone Rasta Patterson DO Primary Care Provider Encounter Details Date Type Department Care Team (Late Contact Info) Description 08/17/2025 Orders Only [facility] Oncology and Hematology [place] [address] [place] [address] Brady Villanueva MD [facility] [email or web address] [address] [place] [address] Social History Tobacco Use Types Packs/Day Years Used Date Smoking Tobacco: Never Smokeless Tobacco: Never Alcohol Use Standard Drinks/Week Comments Never 0 (1 standard drink = 0.6 oz pur e alcohol) Comments Unknown Sex and Gender Information Value Date Recorded Sex Assigned at Not on file Legal Sex Female 11:53 AM CREDENTIALING COORDINATOR Gender Identity Not on file Sexual Orientation Not on file documented as of this encounter Plan of Treatment Upcoming Encounters Date Type Department Care Team (Late Contact Info) Description 08/29/2025 2:45 PM CDT Office Visit [facility] Oncology and Hematology - [place] [address] [place] [address] Brady Villanueva MD [facility] [email or web address] [address] [place] [address] documented as of this encounter Procedures Procedure Name Priority Date/Time Associated Diagnosis Comments COMPREHENSIVE METABOLIC PANEL Routine 08/16/2025 11:14 AM CDT documented in this encounter Results * COMPREHENSIVE METABOLIC PANEL (08/16/2025 11:14 AM CDT) Blood Brady Villanueva MD CHEMISTRY ORDERABLES Final Resu lt documented in this encounter Visit Diagnoses Not on filedocumented in this encounter Care Teams Customer Expert Relationship Specialty Start Date End Date Rasta Patterson DO [address] [phone] PCP - General Internal Medicine 12/01/24 documented as of this encounter
== END 2025-08-22 08:27 | disposition home or self-care (01) ==
PROVIDERS: PCP Internal Medicine; Visit Provider Internal Medicine Hematology & Oncology
DX: C32.9 Malignant neoplasm of larynx, unspecified (principal)
CPT/HCPCS: 70491; 71260; Q9967